=== PATIENT | male | born 1960 | race Caucasian/White ===

== ENCOUNTER 2019-11-12 02:14 | Observation (INO) | payer OTHER, SELFPAY ==
[2019-11-12] VITALS (18 sets, daily range): BP systolic 129–178; BP diastolic 66–130; PULSE 93–112; RESP 12–24; TEMP 36.3–37; O2SAT 91–99; BMI 38.5; BMI 38.4
--- NOTE | 2019-11-12 | IMM_PTH ---
PATIENT: LIZET TILLEY LOC: MS3 U#:[id number] AGE/SX: 59/M ROOM: MS321 RE11/12/[address]: Dr. Isa Peter MD : 1960 BED: 1 DIS: 11/12/2019 SPEC #: [id number] RECD: 11/13/19 09:21 STATUS: SOUT REQ #: [id number] DANIELLA: 11/12/19 00:[address]: Jefferson Caicedo DEPT: IMMUNOHISTOCHEMISTRY RECD BY: Angeles Aguilar ENTERED: 11/13/19 09:30 SP TYPE: IMMUNO OTHR DR: MD Dr. Francisco Aguilar MD Dr. Joseph Prah, MD No Primary Care Phys Tissues: Lung, NOS Procedures: RCC (add) NAPSIN A (add) CK20 (add) CK5-6 (add) CK7 (add) CK8 (add) HEP PAR (add) TTF1 (add) Pankeratin (initial) P40 (add) PSAP (add) PHYSICIAN & [address] [address] SPECIMEN INFORMATION: Tissue Source: Right mainstem Clinical Info: Lung mass Specimen Number: [id number] CPT code: 49610, 61913 x10 METHODOLOGY: Deparaffinized sections of prefer/formalin-fixed tissue or PAP/DQ stained slides are incubated with monoclonal/polyclonal antibodies/oligonucleotide probes. Localization is made via biotin free immunoperoxidase method. Appropriate controls are performed and reacted as expected. Results on target cell population are indicated in the following table: RESULTS: ANTIBODY / CLONE RESULT AE1-3 (AE1/AE3/PCK26) positive CK7 (OV-TL12/30) negative CK8 (47mnqqJ09) positive CK20 (KS20.8) negative TTF-1 (8G7G3/1) negative Napsin A (Rabbit Polyclonal) negative HepPar (OCh1E5) negative RCC (PN-15) negative PSAP (PASE/4LJ) negative CK5-6 (D5 & 1684) positive P40 (BC28) positive These tests were developed and their performance characteristics determined by [facility]. They may not have been cleared or approved by the U.S. Food and Drug Administration. The FDA has determined that such clearance or approval is not necessary. The above immunohistochemical/dualISH markers are ordered and reviewed by the Pathologist. INTERPRETATION: Right mainstem, endobronchial biopsy: Non-small cell carcinoma, favor squamous cell carcinoma. SJ:john 11/14/19
--- NOTE | 2019-11-12 | LUNB_PTH ---
PATIENT: LIZET TILLEY LOC: MS3 U#:[id number] AGE/SX: 59/M ROOM: SD321 RE11/12/[address]: Dr. Isa Peter MD : 1960 BED: 1 DIS: 11/12/2019 SPEC #: [id number] RECD: 11/12/19 11:09 STATUS: IMELDA REQ #: [id number] DANIELLA: 11/12/19 00:[address]: Jefferson Caicedo DEPT: SURGICAL PATHOLOGY RECD BY: Reinier Vázquez ENTERED: 11/12/19 12:46 SP TYPE: LUNG BX OTHR DR: MD Dr. Jefferson Aguilar DO Dr. Joseph Agyepong, MD Dr. Joseph Prah, MD No Primary Care Phys Tissues: Lung, NOS Procedures: Surgery Specimen Level IV Comments: @ Ordering doctor for SUIV edited from to @ by BIA at 11/12/19 1327 @ Submitting doctor edited from to @ by RGOOD at 11/12/19 1327 HEADER OPERATION: Bronchoscopy with endobronchial biopsy, Lauren biopsy, cytobrush PRE-OP DIAGNOSIS: Lung mass TISSUE SUBMITTED: Right mainstem MICROSCOPIC DIAGNOSIS Right mainstem, endobronchial biopsy: Non-small cell carcinoma, favor Squamous cell carcinoma. See comment. CRISTO:john 11/13/19 COMMENT Immunohistochemistry ([id number]) supports the above diagnosis. Molecular studies on the tumor will be performed and the results will be reported as an addendum. Please make reference to corresponding cytology specimen ([id number]). MICROSCOPIC DESCRIPTION Slides are reviewed. GROSS DESCRIPTION Received in fixative is one container labeled with the patient's name and designated endobronchial biopsy right mainstem. The specimen consists of multiple irregular fragments of melendrez soft tissue that in aggregate measure 1 x 0.2 x 0.1 cm. The specimen is totally submitted in one cassette. / CRISTO:john 8/18/20 TC:0 CPT: 39008 ADDENDUM ADDENDUM ADDENDUM ADDENDUM ADDENDUM ADDENDUM ADDENDUM ADDENDUM ADDENDUM ADDENDUM ADDENDUM 11/27/2019 09:53 ADDENDUM 12/04/2019 09:56 ADDENDUM 11/27/2019 09:53 ADDENDUM 11/27/2019 09:53 ADDENDUM 11/27/2019 09:53 ADDENDUM 11/27/2019 09:53 [facility] EGFR SEQUENCING REPORT FROM [facility] RESULT SUMMARY: Normal PERTINENT NEGATIVE RESULTS: The following genes are negative for clinically relevant mutations. Mutational hotspots and surrounding exonic regions were interrogated for DNA level point mutations and indels (fusions not assayed). EGFR (exons 7, 15, 18, 19, 20, 21) inclusive of T790M. Please see complete report in e-chart or EMR FLUORESCENCE IN SITU HYBRIDIZATION FROM [facility] INTERPRETATION: No evidence of ALK gene rearrangement or deletion. RESULTS: 2p23/ ALK Normal Nuclei Rearrangement 100% Please see complete report in e-chart or EMR
--- NOTE | 2019-11-12 02:25 | EKG12_ITS ---
Test Reason : SOB Blood Pressure : / mmHG Vent. Rate : 093 BPM Atrial Rate : 093 BPM P-R Int : 134 ms QRS Dur : 098 ms QT Int : 370 ms P-R-T Axes : -08 054 026 degrees QTc Int : 460 ms Normal sinus rhythm Normal ECG Confirmed by NATALIA CASTILLO, JAJA ([id number]), assignment editor CHENTE HOLLIS ([id number]) on 11/12/2019 9:31:08 AM Referred By: Francisco Girard Confirmed By:JAJA FISHER MD
--- NOTE | 2019-11-12 02:25 | RAD_ITS ---
STUDY: X-RAY CHEST REASON FOR EXAM: Male, 59 years old. SOB x1 month. Including tonight. TECHNIQUE: PA and lateral views of the chest. COMPARISON: 10/03/2013 CT chest FINDINGS: There is a interval density in the right infrahilar region. There is an enlarged masslike enlargement of the right hilum. Normal size heart. Normal mediastinum and juvencio. Normal visualized pulmonary arteries. Normal visualized aortic arch and descending thoracic aorta. There are diffuse degenerative changes of the visualized thoracic spine. Normal visualized ribs, clavicles, and shoulders. There is no demonstrated abnormality of the visualized soft tissue structures of the upper abdomen. RAD/Chest PA and Lateral IMPRESSION: Enlarged masslike enlargement of the right hilum suspicious for lymphadenopathy/mass. Recommend CT scan of the chest. Electronically Signed: Luly Chandler MD at 3:34 EDT Tel , Service support ,
--- NOTE | 2019-11-12 02:26 | ED.VIS.GEN ---
History of Present Illness Chief Complaint: Shortness of Breath Informant: Patient Narrative: shortness of breath he stated on and off for the last 9 months worse over the last month. He has wheezing. He has dyspnea with exertion. He does smoke cigarettes. No history of COPD. Takes no medications. Has not seen a doctor for some years however. Denies any history of cardiac disease or chronic lung disease. He has noticed he has been wheezing. No home treatment. Comes in for further evaluation and treatment. Denies any coronavirus risk factors or other symptoms to suggest coronavirus. Current severity is mild - Past Medical History (1) AVELINO (acute kidney injury) Status: Acute (2) Altered mental state Status: Acute (3) Chronic lower Back Pain due to Status: Acute (4) Closed head injury Status: Acute (5) Dehydration Status: Acute (6) Fall Status: Acute (7) Hypokalemia Status: Acute (8) sedation due to narcotic Status: Acute (9) Chronic pain Status: Chronic (10) Lymphedema Status: Chronic (11) Morbid obesity with BMI of 50.0-59.9, adult Status: Chronic (12) Schizophrenia Status: Suspected Comment: review of his old chart documents schizophrenia BUT review of the notes from the psychiatrist at mental health clinic does not support this. HX is + for severe depression and anxiety Past Medical History - Allergies and Home Meds Allergies/Adverse Reactions: Allergies No Known Allergies Allergy (Verified 11/12/19 02:22) Primary Care Physician: Terrence Guajardo MD [NON-STAFF] - Prior records reviewed: Yes Past Medical History: - - See problem list Surgical History: no surgical history, - - spinal pain pump seven years ago, then replacement of july of this year Smoking Status: Current some day smoker Alcohol: None Drugs: None - Family History Paternal Family History: Reports: - - Father of suicide Maternal Family History: Reports: - - heart issues, mother with mi recently Review of Systems General: Denies: Chills, Fever, Sweats Eyes: Denies: Visual changes - bilaterally, Diplopia ENT: Denies: Rhinorrhea, Sore throat Cardiovascular: Denies: Chest pain, Palpitations Respiratory: Reports: Dyspnea, Dyspnea on exertion. Denies: Cough Gastrointestinal: Denies: Abdominal pain, Nausea, Vomiting, Diarrhea, Melena, Hematochezia Genitourinary: Denies: Dysuria, Hematuria, Frequency Musculoskeletal: Denies: Back pain, Extremity Pain Skin: Denies: Rash, Wounds Neurological: Denies: Headache, Weakness, Numbness Physical Exam Vital Signs/Narrative: Vital Signs Temp Pulse Resp BP Pulse Ox 11/12/19 02:22 97.4 F L 98 18 178/107 H 98 11/12/19 02:15 97.4 F L 98 16 178/107 H 98 General: Well nourished, Well developed, No Acute Distress Head: Normocephalic, Atraumatic Eyes: Perrl, EOMI ENT: Moist mucous membranes, No rhinorrhea Neck: Supple, Nontender Cardiovascular: Regular rate, Regular rhythm, No murmurs Respiratory: No distress, Chest nontender, Wheezing - Diffuse wheezing throughout all lung andrade expiratory Abdomen: Soft, Nontender, Nondistended, Normal bowel sounds Back: Nontender, Normal Inspection Extremities: Nontender, No edema Skin: Normal color, No rash Neurological: Alert, Oriented x3, Cranial nerves II-XII grossly intact, Normal Strength, Normal Sensation Psychological: Normal affect, Normal Mood Diagnostic/Tx/Re-eval - Medical Decision Making Lab work EKG chest x-ray obtained. Patient given DuoNeb breathing treatment followed by albuterol nebulizer treatments. Patient felt much better after breathing treatments. The wheezing has resolved. EKG of the patient's heart shows normal sinus rhythm at a rate of 93 with no acute ischemia or arrhythmia. Chest x-ray shows no infiltrates. Right-sided hilar mass noted. CT of the chest with IV contrast shows a significant right-sided hilar mass with lymph node enlargement and post bronchial obstructive atelectasis of the right upper and partial middle lobe. I suspect the patient may have cancer. He is willing to be admitted to the hospital. Lab work shows no acute abnormalities otherwise. CBC BMP and troponin are negative. Discussed with the hospitalist will be admitted ED Disposition - Plan for ED Patient: Disposition: Acute Care Hospital [facility] Diagnosis: Lung mass
[2019-11-12 02:31] LABS: Absolute Lymphocyte Count 1.82 X10^3/uL (0.83-4.51); Absolute Neutrophil Count 4.9 X10^3/uL (2.0-7.7); Basophil# 0.03 X10^3/uL; Basophil% 0.4 % (0-1); Eosinophil# 0.12 X10^3/uL; Eosinophils% 1.6 % (0-5); Hematocrit 46.9 % (40-54); Hemoglobin 15.6 g/dL (13.0-16.5); Lymphocyte # 1.82 X10^3/ul (4.0); Lymphocyte % 24.1 % (19-41); Mean Corp Hgb Conc 33.3 g/dL (32-36); Mean Corpuscular Hgb 30.7 pg (27.0-32.0); Mean Corpuscular Volume 92.3 fL (80-94); Mean Platelet Vol. 9.5 fl (6.2-12.0); Monocyte# 0.67 X10^3/uL; Monocyte% 8.9 % (0-10); NRBC Flagged by Analyzer 0 % (0-5); Neutrophil # 4.89 X10^3/uL (2.7-7.7); Neutrophil % 64.7 % (47-70); Platelet Count 326 K/mm3 (150-450); RBC Distribution Width CV 12.6 % (11.6-14.6); RBC Distribution Width SD 42.7 fl (35.1-43.9); Red Blood Count 5.08 M/mm3 (4.6-6.2); White Blood Count 7.6 K/mm3 (4.4-11.0)
[2019-11-12] MEDS: Ipratropium/Albuterol Sulfate 3 ML AMPUL.NEB INHALATION ×2 (02:31→07:01)
[2019-11-12] MEDS: Albuterol 2.5 MG/3 ML VIAL.NEB. INHALATION ×3 (02:34→02:35)
[2019-11-12 02:50] LABS: Anion Gap 3 (5-15); BUN 17 mg/dL (7-18); BUN/Creat Ratio 13.2 RATIO (10-20); Calcium,Total 9.1 mg/dL (8.5-10.1); Chloride 108 mmol/L (98-107); Creatinine, Serum 1.29 mg/dL (0.70-1.30); EST Glomerular Filtration Rate 61 mL/min (>60); Est Glom Filt Rate - Afr Amer 74 mL/min (>60); Estimated Creatinine Clearance 66.48 ml/min; Glucose 134 mg/dL (74-106); Potassium 3.9 mmol/L (3.5-5.1); Sodium Level 141 mmol/L (136-145)
--- NOTE | 2019-11-12 03:45 | CT_ITS ---
STUDY: CT CHEST WITH CONTRAST REASON FOR EXAM: Male, 59 years old. CONCERN FOR LUNG MASS ON X-RAY, SOB ON/OFF FOR 9 MONTHS, COUGH, WHEEZING, HX COPD, SMOKER, PAIN PUMP RADIATION DOSAGE (If Supplied By Facility): CTDIvol = ( 17.92 ) mGy, DLP = ( 714.39 ) mGycm TECHNIQUE: Transaxial imaging was performed following intravenous administration of IV 100mL Isovue-370. Multiplanar coronal and sagittal images were reformatted. Individualized dose optimization techniques were used for this CT. COMPARISON: CT of the chest 04/07/2013 FINDINGS: There is focal dense consolidation from the right apex anteriorly to the right hilum. There is a visualized abnormal thick walled appearance of the right mainstem bronchus which appears to be partially effaced and substantially narrow proximally. It appears to be encased and narrowed best seen image #155 of the coronal views. There is right lung base small focus of nonspecific pleural thickening Normal heart and pericardium. The pathology in the right hilum encases the right pulmonary artery without thrombus. There is a collapsed appearance of the right upper lobe and a portion of the right knee middle lobe. There is a masslike density within the right hilum infiltrating the right side of the mediastinum encasing the right mainstem bronchus and partially the right pulmonary artery. There is a large lymph node adjacent to the right side of the trachea measuring 2.6 x 2.7 cm where a suspected mass leaves off in the consolidation of the right lung (difficult to ascertain. Normal enhanced pulmonary arteries. There is atherosclerotic calcification of the aortic arch with tortuosity and elongation of the aortic arch and descending thoracic aorta. There are multi-level degenerative changes of the thoracic spine. A well-circumscribed low attenuating cystic structure within the left hepatic lobe measuring 3.1 x 2.3 cm. This is enlarged when compared to prior study 05/24/2013, when it measured 1.[address]/Chest WITH Contrast IMPRESSION: There is a mass which is infiltrate in the right hilum narrowed and encased the right mainstem bronchus with adjacent reactive metastatic lymph nodes. Findings are most consistent with a postobstructive collapse/pneumonitis of the right upper lobe and right middle lobe. Neoplasm should be considered to prevent otherwise. History of bronchoscopy would be helpful. PET scan is suggested when appropriate. There is a left hepatic cyst with benign features which is enlarged slightly since prior study. This may be associated benign enlargement over time. Electronically Signed: Luly Chandler MD at 4:34 EDT Tel , Service support ,
--- NOTE | 2019-11-12 04:43 | PCM.HP.STD ---
Problem List (1) Lung mass Status: Acute (2) Chronic pain Status: Chronic (3) Lymphedema Status: Chronic (4) Chronic lower Back Pain due to Status: Chronic (5) Tobacco abuse Status: Acute History of Present Illness Date of Admission: 11/12/19 Chief Complaint: Shortness of breath The patient is a 59 year old M with a significant history of chronic back pain who presents to the emergency department with shortness of breath dating back to January 2019 where reportedly he had double pneumonia. He shortness of breath has progressively worsened in the last month. 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 His shortness of breath worsens excessively with mild activity. Associated with his symptoms is wheezing; productive cough typically of clear sputum but at times of yellow sputum. Also at times he has hemoptysis. Further he has orthopnea and paroxysmal nocturnal dyspnea. He reports fatigue. Past Medical History Past Medical History (Chronic Problems): Chronic Problems Chronic pain (Chronic) Lymphedema (Chronic) Chronic lower Back Pain due to (Chronic) Allergies No Known Allergies Allergy (Verified 11/12/19 02:22) Home Medications: Ambulatory Orders Medication Instructions Recorded NK 11/12/19 Surgical History: - - spinal pain pump placed and extracted; and then replacement of a pain pump in abdomen Psychiatric History: Schizophrenia Smoking Status: Current every day smoker Tobacco Use: Cigarettes Alcohol: None Drugs: None - *Family History Paternal History Items: - - Father of suicide Maternal History Items: - - heart issues, mother with mi recently Review of Systems Constitutional: Denies: Chills, Fever, Weight Change HEENT: Denies: Head Aches, Sinus Congestion, Sinus Drainage Cardiovascular: Reports: Orthopnea, Paroxysmal Noc. Dyspnea. Denies: Chest Pain, Palpitations Respiratory: Reports: Hemoptysis, Shortness of Breath, Shortness of breath at rest. Denies: Cough, Sputum production Gastrointestinal: Denies: Abdominal Pain, Nausea, Vomiting Genitourinary: Denies: Dysuria Musculoskeletal: Denies: Joint Pain, Joint Tenderness Skin: Denies: Rash, Wounds Neurological: Denies: Numbness, Tingling, Focal weakness Psychiatric: Denies: Anxiety, Depression, Homicidal Ideations, Suicidal Ideations Hematologic/ Lymphatic: Denies: Easy Bruising, Easy Bleeding VTE Information - Inpt Only VTE Present on Admission: No VTE Mechan Device Prophylaxis: SCD's VTE Pharm Prophylaxis ordered?: No Patient Problems: Active and Suspected Problems Lung mass (Acute) Tobacco abuse (Acute) - Physical Exam Vitals/I&O's: Vital Signs Temp Pulse Resp BP Pulse Ox 97.4 F L 112 H 18 148/72 H 92 11/12/19 02:22 11/12/19 04:26 11/12/19 04:26 11/12/19 04:26 11/12/19 04:26 Oxygen Delivery Method Room Air Weight: 125.4 kg Body Mass Index (BMI) 38.5 Finger Stick Blood Glucose 127 General: Alert, Oriented x3, Cooperative HEENT: Atraumatic, PERRLA, EOMI, Normocephalic Neck: Supple, No JVD, Negative Carotid Bruits Lungs: Rhonchi, Wheezes Cardiovascular: Normal S1, Normal S2, No murmurs, Tachycardic Abdomen: Bowel Sounds Present, Soft, Non Tender Extremities: No edema, Capillary Refill Less than 3 Seconds Skin: No rashes, No breakdown Musculoskeletal: No Tenderness to Palpation of Joints or Extremities Neurological: Cranial nerves II-XII grossly intact Psych/Mental Status: Normal Affect, Appropriate Laboratory Results 11/12/19 02:20: WBC 7.6, RBC 5.08, Hgb 15.6, Hct 46.9, MCV 92.3, MCH 30.7, MCHC 33.3, RDW Std Deviation 42.7, RDW Coeff of Shell 12.6, Plt Count 326, MPV 9.5, Immature Gran % (Auto) 0.300, Neut % (Auto) 64.7, Lymph % (Auto) 24.1, [place] % (Auto) 8.9, Eos % (Auto) 1.6, Baso % (Auto) 0.4, Absolute Neuts (auto) 4.9, Absolute Lymphs (auto) 1.82, Nucleated RBC % 0 11/12/19 02:20: Sodium 141, Potassium 3.9, Chloride 108 H, Carbon Dioxide 30.0, Anion Gap 3 L, BUN 17, Creatinine 1.29, Estim Creat Clear Calc 66.48, Est GFR (MDRD) Af Amer 74, Est GFR (MDRD) Non-Af 61, BUN/Creatinine Ratio 13.2, Glucose 134 H, Calcium 9.1, Troponin I < 0.015 Assessment/Plan All Active Problems Lung mass (Acute) Tobacco abuse (Acute) The patient is a 59 year old M with a significant history of chronic back pain who presents emergency department with shortness of breath; wheezing; hemoptysis; productive cough; paroxysmal nocturnal dyspnea; orthopnea and radiographic evidence of lung mass. Lung mass Patient received DuoNeb and albuterol emergency department. Because of wheezing scheduled DuoNeb and PRN albuterol ordered. Consult pulmonary medicine and oncology. Chronic back pain He has a pain pump but for a while he has run out of pain medicine and and the pump is always beeping. On discharge consider pain management referral for discussion of possible pain pump extraction. Tobacco abuse Patient smoke cigarettes Smokes about 8 to 10 sticks of cigarettes per day Counseled Declined nicotine patch. DVT prophylaxis SCD for now. Will defer chemical chemoprophylaxis because of a possible bronchoscopy/biopsy of lung mass. Inpatient E&M: 48009 Init Hosp L3
[2019-11-12 06:22] LABS: Prothrombin Time (Protime)PT. 12.2 SECONDS (11.7-14.9)
--- NOTE | 2019-11-12 07:23 | CON.PCM_ITS ---
Reason for Consult Date of Consultation: 11/12/19 Reason for Consultation: Shortness of breath, hemoptysis, lung mass History of Present Illness: The patient is a 59-year-old male, with a history as outlined below, who presented to the emergency department on November 11 with complaints of shortness of breath and intermittent episodes of hemoptysis. The patient does have an approximate [id number]-grys smoking history and continues to smoke cigarettes daily. He has never been evaluated by a insurance billing clerk previously. He stated that his symptoms have been present since January 2019, at which time, he was apparently treated for bilateral pneumonia. He denies any unintentional weight loss or loss of appetite. He denies any known cardiac disease. The patient does report having had a colonoscopy performed within the last several years, at which time a polyp was identified. However, it was reportedly benign in etiology. On presentation to the emergency department, the patient was noted to be afebrile hemodynamically stable. He was maintaining appropriate oxygen saturations on room air. Laboratory evaluation revealed a normal CBC with differential. Coagulation profile was within normal limits. Chemistry profile was largely unrevealing. Troponin was negative. A contrasted chest CT was subsequently obtained which revealed consolidation of the right upper lobe with a right hilar mass which appears to be obstructing the right upper lobe takeoff and significantly narrowing the right mainstem and bronchus intermedius. The upper lobe changes are most likely reflective of postobstructive collapse. The patient was subsequently placed on scheduled aerosol treatments and admitted to the medical surgical floor for further management. This morning, the patient does report overall improvement in his breathing quality since being started on the nebulized bronchodilators. He stated that he is currently in the process of moving and has been significantly limited from an exertional standpoint due to profound shortness of breath. I did personally explain the findings noted on his CT chest and the concern that this could represent an underlying malignancy. I did recommend proceeding with bronchoscopic airway evaluation with potential biopsies. Following a discussion regarding the risks and benefits of the proposed procedure, the patient is in agreement to proceed. Past Medical History Past Medical History (Chronic Problems): Chronic Problems Chronic pain (Chronic) Lymphedema (Chronic) Chronic lower Back Pain due to (Chronic) Allergies No Known Allergies Allergy (Verified 11/12/19 02:22) Home Medications: Ambulatory Orders Medication Instructions Recorded Albuterol Inhaler [Ventolin Hfa] 2 puff INHALATION Q4H PRN PRN 30 11/12/19 Days #1 inhaler Surgical History: - - spinal pain pump placed and extracted; and then replacement of a pain pump in abdomen Psychiatric History: Schizophrenia Smoking Status: Current every day smoker Tobacco Use: Cigarettes Alcohol: None Drugs: None - *Family History Paternal History Items: - - Father of suicide Maternal History Items: - - heart issues, mother with mi recently Review of Systems Constitutional: Denies: Chills, Fever, Weight Change Eyes: Denies: Blurred vision, Double vision HEENT: Denies: Head Aches, Sinus Congestion, Sinus Drainage Cardiovascular: Denies: Chest Pain, Palpitations Respiratory: Reports: Cough, Hemoptysis, Shortness of Breath, Sputum production Gastrointestinal: Denies: Abdominal Pain, Nausea, Vomiting Genitourinary: Denies: Dysuria Musculoskeletal: Denies: Joint Pain, Joint Tenderness Skin: Denies: Rash, Wounds Neurological: Denies: Numbness, Tingling, Focal weakness Psychiatric: Denies: Anxiety, Depression, Homicidal Ideations, Suicidal Ideations Hematologic/ Lymphatic: Denies: Easy Bruising, Easy Bleeding - Physical Exam Vitals/I&O's: Vital Signs Temp Pulse Resp BP Pulse Ox 97.9 F 97 20 H 131/66 H 94 11/12/19 06:04 11/12/19 06:04 11/12/19 06:04 11/12/19 06:04 11/12/19 06:04 Oxygen Delivery Method Room Air Weight: 275 lb 5.718 oz Body Mass Index (BMI) 38.4 Finger Stick Blood Glucose 127 Intake and Output for Last 24 Hours 11/10/19 11/11/19 11/12/19 23:59 23:59 23:59 Intake Total 500 / 500 Balance 500 / 500 General: Alert, Cooperative, No apparent distress HEENT: Atraumatic, PERRLA, Normocephalic Oral: No Gingival or Mucosal Lesions/ Ulcerations Neck: Supple, No Nodes, Trachea Midline Lungs: No rhonchi, No rales, Diminished, Wheezes Cardiovascular: Normal S1, Normal S2, Tachycardic Abdomen: Bowel Sounds Present, Soft, Non Tender Extremities: No clubbing, No cyanosis, No edema Skin: No breakdown Musculoskeletal: No Tenderness to Palpation of Joints or Extremities Lymphatic: No Cervical, Supraclavicular, or Inguinal Adenopathy Neurological: Cranial nerves II-XII grossly intact, Neuro grossly intact Psych/Mental Status: Normal Affect, Appropriate Labs (Last 48 Hours) 11/12/19 11/12/19 11/12/19 02:20 02:20 02:20 WBC 7.6 RBC 5.08 Hgb 15.6 Hct 46.9 MCV 92.3 MCH 30.7 MCHC 33.3 RDW Std Deviation 42.7 RDW Coeff of Shell 12.6 Plt Count 326 MPV 9.5 Immature Gran % (Auto) 0.300 Neut % (Auto) 64.7 Lymph % (Auto) 24.1 [place] % (Auto) 8.9 Eos % (Auto) 1.6 Baso % (Auto) 0.4 Absolute Neuts (auto) 4.9 Absolute Lymphs (auto) 1.82 Nucleated RBC % 0 PT 12.2 INR 1.0 Sodium 141 Potassium 3.9 Chloride 108 H Carbon Dioxide 30.0 Anion Gap 3 L BUN 17 Creatinine 1.29 Estim Creat Clear Calc 66.48 Est GFR (MDRD) Af Amer 74 Est GFR (MDRD) Non-Af 61 BUN/Creatinine Ratio 13.2 Glucose 134 H Calcium 9.1 Troponin I < 0.015 Clinical Impression(s) from Imaging Studies Chest X-Ray 11/12/19 02:25 IMPRESSION: Enlarged masslike enlargement of the right hilum suspicious for lymphadenopathy/mass. Recommend CT scan of the chest. Electronically Signed: Luly Chandler MD at 3:34 EDT Tel , Service support , Chest CT 11/12/19 03:45 IMPRESSION: There is a mass which is infiltrate in the right hilum narrowed and encased the right mainstem bronchus with adjacent reactive metastatic lymph nodes. Findings are most consistent with a postobstructive collapse/pneumonitis of the right upper lobe and right middle lobe. Neoplasm should be considered to prevent otherwise. History of bronchoscopy would be helpful. PET scan is suggested when appropriate. There is a left hepatic cyst with benign features which is enlarged slightly since prior study. This may be associated benign enlargement over time. Electronically Signed: Luly Chandler MD at 4:34 EDT Tel , Service support , Current Medications Acetaminophen (Tylenol) 650 mg PO Q6H PRN PRN PRN Reason: Pain Score 1-10/Temp > 100.7 F Albuterol Sulfate (Ventolin Aerosols) 2.5 mg INHALATION Q2H PRN PRN PRN Reason: Shortness of Breath/Wheezing Albuterol/Ipratropium (Duoneb) 3 ml INHALATION Q6HWA.RT AKSHAT Last Admin: 11/12/19 07:01 Dose: 3 ml Documented by: Melatonin (Melatonin) 3 mg PO QHS PRN PRN PRN Reason: INSOMNIA Ondansetron HCl (Zofran) 4 mg IV Q8H PRN PRN PRN Reason: NAUSEA/VOMITING Sodium Chloride () 10 - 40 ml IV UD PRN PRN Reason: SALINE FLUSH Assessment/Plan All Active Problems Lung mass (Acute) Tobacco abuse (Acute) Lung cancer (Acute) RECOMMENDATIONS: 1. Proceed with bronchoscopic airway evaluation with possible biopsies. The procedure has been tentatively scheduled for 10 AM. 2. Continue scheduled bronchodilator therapy. 3. Perform walking oximetry study prior to consideration for discharge home. 4. Encourage incentive spirometer use and mobilize patient as tolerated. 5. Outpatient follow-up in the pulmonary medicine clinic within 2 weeks of discharge is recommended. IMPRESSIONS: 1. Shortness of breath/right hilar lung mass The patient CT chest was personally reviewed and did reveal evidence of a right hilar lung mass with associated obstruction of the right upper lobe and compression of the right mainstem and bronchus intermedius. There did appear to be an element of postobstructive pneumonia/atelectasis present as well. The patient does have an extensive smoking history. These findings, of course, wo uld be concerning for underlying malignancy. I did recommend proceeding with bronchoscopic airway evaluation and possible biopsies to confirm my diagnosis. Following a discussion regarding the risks and benefits of the proposed procedure, the patient is in agreement to proceed. In the interim, I would recommend that he be continued on scheduled bronchodilator therapy. 2. History of tobacco dependency The patient has a 40+-pack-year smoking history and continues to smoke cigarettes daily. He may certainly have an underlying component of obstructive lung disease contributing to his perceived dyspnea. I would recommend that he follow-up closely on an outpatient basis in the pulmonary medicine clinic so that baseline pulmonary function studies can be completed. In addition, would plan to complete a walking oximetry study prior to consideration for discharge home, to evaluate for the need for supplemental oxygen. I did personally spent 4 minutes discussing the deleterious effects of continued tobacco use with the patient, including modalities which could be utilized to achieve a smoke-free lifestyle. UPDATE POST BRONCHOSCOPY: Bronchoscopy revealed evidence of a right hilar lung mass with extrinsic compression and infiltration into the right mainstem. There was evidence of a fungating endobronchial lesion in the right mainstem which could not be traversed with the bronchoscope. In addition, there was complete obstruction of the right upper lobe orifice. Endobronchial biopsies, endobronchial needle aspiration and cytology brush samples were obtained. If the patient does well post procedure, he could feasibly to be discharged home with plans to follow-up in the pulmonary medicine clinic within 2 weeks. I would strongly recommend that he be discharged home on as needed albuterol, either in nebulized or metered-dose forms. I did advise the patient that I will contact him as soon as his pathology results are made available. This note was generated with [employer] dictation software. It may contain incorrect words, spelling, and punctuation that were not noted in checking the note before signing. Inpatient E&M: 40541 Init Hosp L3 - Behavior Interventions Behavior Intervention: 23295 Smoking Cessation 3-10 min
[2019-11-12] MEDS: Lactated Ringers 1,000 ML 100 ML IV (09:32)
[2019-11-12] MEDS: Lidocaine 2% Jelly 1 APPLIC Tube (10:50)
--- NOTE | 2019-11-12 10:56 | OP.BRONCH_ITS ---
Patient Name: Randal Sal Procedure Date: 11/12/2019 9:51 AM Date of : 1960 Age: 59 Procedure: Bronchoscopy Indications: Right mainstem mass, Right hilar mass Providers: Jefferson Caicedo MD Referring MD: Francisco Girard Medicines: Monitored Anesthesia Care Complications: Patient bronchospasm and coughing limited the number of biopsies that could be obtained. The endobronchial lesion also bled a great deal following biopsy. Stasis was achieved with infusion of cold saline. No immediate complications Procedure: Pre-Anesthesia Assessment: - A History and Physical has been performed. Patient meds and allergies have been reviewed. The risks and benefits of the procedure and the sedation options and risks were discussed with the patient. All questions were answered and informed consent was obtained. Patient identification and proposed procedure were verified prior to the procedure by the physician and the nurse in the procedure room. Mental Status Examination: alert and oriented. Airway Examination: normal oropharyngeal airway. Respiratory Examination: expiratory wheezes. CV Examination: RRR, no murmurs, no S3 or S4. ASA Grade Assessment: II - A patient with mild systemic disease. After reviewing the risks and benefits, the patient was deemed in satisfactory condition to undergo the procedure. The anesthesia plan was to use monitored anesthesia care (MAC). Immediately prior to administration of medications, the patient was re-assessed for adequacy to receive sedatives. The heart rate, respiratory rate, oxygen saturations, blood pressure, adequacy of pulmonary ventilation, and response to care were monitored throughout the procedure. The physical status of the patient was re-assessed after the procedure. After I obtained informed consent, the scope was passed under direct vision. Throughout the procedure, the patient's blood pressure, pulse, and oxygen saturations were monitored continuously. The bronchoscope was introduced through the mouth and advanced to the tracheobronchial tree. The procedure was accomplished without difficulty. The patient tolerated the procedure fairly well. Findings: The nasopharynx/oropharynx appears normal. The larynx appears normal. The vocal cords appear normal. The subglottic space is normal. The trachea is of normal caliber. The farrah is sharp. The tracheobronchial tree of the left lung was examined to at least the first subsegmental level. Bronchial mucosa and anatomy in the left lung are normal Right Lung Abnormalities: A partially obstructing (about 80% obstructed) mass was found in the right mainstem bronchus with complete obstruction of the right upper lobe orifice. The mass was endobronchial and fungating. The lesion was not traversed. Extrinsic compression was found in the right mainstem bronchus. Endobronchial biopsies were performed in the right mainstem bronchus using forceps and sent for routine cytology. Three samples were obtained. Endobronchial needle aspiration of a lesion was performed in the right mainstem bronchus using a Lauren 19 gauge needle and sent for routine cytology. One sample was obtained. Guided brushings were obtained in the right mainstem bronchus with a cytology brush and sent for routine cytology. One sample was obtained. Washings were obtained in the right mainstem bronchus and sent for cell count, bacterial culture, viral smears & culture, and fungal & AFB analysis and cytology. The return was bloody. Impression: - Right mainstem mass - Right hilar mass - The airway examination of the left lung was normal. - An endobronchial and fungating mass was found in the right mainstem bronchus and in the right upper lobe. - Extrinsic compression was found in the right mainstem bronchus. - An endobronchial biopsy was performed. - Endobronchial needle aspiration was performed. - Brushings were obtained. - Washings were obtained. Recommendation: - Await cytology and washing results. Procedure Code(s): --- Professional --- 53720, Bronchoscopy, rigid or flexible, including fluoroscopic guidance, when performed; with bronchial or endobronchial biopsy(s), single or multiple sites 03602, Bronchoscopy, rigid or flexible, including fluoroscopic guidance, when performed; with brushing or protected brushings Diagnosis Code(s): --- Professional --- R91.8, Other nonspecific abnormal finding of lung field J98.9, Respiratory disorder, unspecified J98.09, Other diseases of bronchus, not elsewhere classified J98.4, Other disorders of lung CPT copyright 2017 [employer]. All rights reserved. The codes documented in this report are preliminary and upon domestic cleaner review may be revised to meet current compliance requirements. DO Jefferson Roque MD 11/12/2019 10:55:31 AM This report has been signed electronically. Number of Addenda: 0 Note Initiated On: 11/12/2019 9:51 AM
--- NOTE | 2019-11-12 11:09 | FLU_PTH ---
PATIENT: LIZET TILLEY LOC: [facility] U#:[id number] AGE/SX: 59/M ROOM: IN321 RE11/12/[address]: Dr. Isa Peter MD : 1960 BED: 1 DIS: 11/12/2019 SPEC #: [id number] RECD: 11/12/19 12:40 STATUS: SOUT REQ #: [id number] DANIELLA: 11/12/19 11:[address]: Jefferson Caicedo DEPT: CYTOLOGY RECD BY: Reinier Vázquez ENTERED: 11/12/19 12:44 SP TYPE: Fluid OTHR DR: MD Dr. Jefferson Aguilar DO Dr. Joseph Agyepong, MD Dr. Joseph Prah, MD No Primary Care Phys Tissues: A - Lung, NOS B - Lung, NOS C - Lung, NOS D - Lung, NOS E - Lung, NOS Procedures: Special Stain Group II Special Stain Group I Surgery Specimen Level IV AFB Stain (control) Cytospin Fluid Cytology Other Comments: @ Ordering doctor for SSII edited from to @ by BIA at 11/12/19 1327 @ Ordering doctor for SUIV edited from to @ by BIA at 11/12/19 1327 @ Ordering doctor for CYSPIN edited from to [email or web address] Haney by BIA at 11/12/19 1327 @ Ordering doctor for CYOTHER edited from to @ by BIA at 11/12/19 1327 @ Submitting doctor edited from to [email or web address] Haney by RGOOD at 11/12/19 1327 HEADER OPERATION: Bronchoscopy with endobronchial biopsy, Lauren biopsy, cytobrush PRE-OP DIAGNOSIS: Lung mass TISSUE SUBMITTED: A - Lauren biopsy right mainstem, B - Wash right mainstem, C - Wash right mainstem, D - [place] right mainstem, E - Right mainstem slides x3 DIAGNOSIS CYTOLOGY A. Lauren biopsy right mainstem (cytospin and cell block): Negative for malignant cells. Special stain for acid fast bacilli is negative for organisms; matched control is appropriate. See cytology study and comment. B. Right mainstem, washing (cytospin and cell block): Scant mildly atypical epithelial cells noted. Special stain for acid fast bacilli is negative for organisms; matched control is appropriate. C. Right mainstem, washing (cytospin and cell block): A few atypical epithelial cells noted. Special stain for acid fast bacilli is negative for organisms; matched control is appropriate. D. Right mainstem, brushing (cytospin and cell block): Malignant cells present derived from non-small cell carcinoma. Special stain for acid fast bacilli is negative for organisms; matched control is appropriate. E. Right mainstem, brushing (smears): A few malignant cells present derived from non-small cell carcinoma. CRISTO:john 11/13/19 COMMENT Please make reference to corresponding surgical specimen ([id number]) right mainstem, endobronchial biopsy with diagnosis of non-small cell carcinoma, favor squamous cell carcinoma. CYTOLOGY STUDY Slides are reviewed. A. The specimen is paucicellular and consists of rare respiratory epithelial cells. CYTOLOGY GROSS A - Received is 15 ml of red cloudy fluid labeled with the patient's name and and designated per the requisition as Lauren biopsy right mainstem. Submitted for cytology preparation including cell block. B - Received is 40 ml of red cloudy fluid labeled with the patient's name and and designated per the requisition as wash right mainstem. Submitted for cytology preparation including cell block. C - Received is 30 ml of red cloudy fluid labeled with the patient's name and and designated per the requisition as wash right mainstem. Submitted for cytology preparation including cell block. D - Received is a metallic endoscopic cytobrush with adherent minute fragments of melendrez-red tissue brush in 2 ml of clear red fluid and labeled with the patient's name and and designated per the requisition as brush right mainstem. The material is dislodged from the brush and submitted for cytology preparation including cell block. E - Received are three smears labeled with the patient's name and designated per the requisition as right mainstem. Submitted for staining. / john 11/12/19 TC:0 CPT: 28811 x4, 12113 x4, 49432, 16547 x4
[2019-11-12 11:18] LABS: Cytology, Body Fluid / CSF SEE PATHOLOGY REPORT
--- NOTE | 2019-11-12 11:45 | PCM.DC ---
- Discharge Diagnoses Current Active Problems: Current Active and Chronic Problems Lung mass (Acute) Tobacco abuse (Acute) Reason(s) for Visit for Discharge Instructions: Lung mass You will use the following diet at home:: Regular Your food should be the consistency of: Regular Your liquids should be the consistency of: Regular/Thin Discharge Activity: Return to Normal Activity Additional Instructions: Continue to use your albuterol inhaler. Follow-up with your primary care doctor and Dr. Caicedo within 1-2 weeks. Allergies/Adverse Reactions: Allergies No Known Allergies Allergy (Verified 11/12/19 02:22) Medications to take at Discharge Albuterol Inhaler [Ventolin Hfa] 2 puff INHALATION Q4H PRN PRN 30 Days #1 inhaler 11/12/19 The following prescriptions were given: Albuterol Inhaler [Ventolin Hfa] 2 puff INHALATION Q4H PRN PRN 30 Days #1 inhaler PRN Reason: Sob &/Or Wheezing Transmission Status: Pending to [facility] Primary Care Physician: Care Physician,No Primary [Primary Care Provider] - Please follow up with your Primary Care Physician in: within 1-2 weeks Test Results: Test results from this visit will be discussed in further detail at your follow-up appointment, if applicable. Proposed Discharge Date: 11/12/19
--- NOTE | 2019-11-12 11:47 | DS.PCM_ITS ---
Discharge Date and Diagnosis Date of Admission: 11/12/19 Date of Discharge: 11/12/19 - Primary Discharge Diagnosis Acute Problems: Active Problems Lung mass (Acute) Nicotine dependence - Secondary Discharge Diagnosis Chronic Problems: Chronic Problems Chronic pain (Chronic) Lymphedema (Chronic) Chronic lower Back Pain due to (Chronic) Hospital Course and Treatment Imaging Results: 11/12/19 03:45 CT Chest [Chest WITH Contrast] [CT] Stat Clinical Impression(s) from Imaging Studies Chest X-Ray 11/12/19 02:25 IMPRESSION: Enlarged masslike enlargement of the right hilum suspicious for lymphadenopathy/mass. Recommend CT scan of the chest. Electronically Signed: Luly Chandler MD at 3:34 EDT Tel , Service support , Chest CT 11/12/19 03:45 IMPRESSION: There is a mass which is infiltrate in the right hilum narrowed and encased the right mainstem bronchus with adjacent reactive metastatic lymph nodes. Findings are most consistent with a postobstructive collapse/pneumonitis of the right upper lobe and right middle lobe. Neoplasm should be considered to prevent otherwise. History of bronchoscopy would be helpful. PET scan is suggested when appropriate. There is a left hepatic cyst with benign features which is enlarged slightly since prior study. This may be associated benign enlargement over time. Electronically Signed: Luly Chandler MD at 4:34 EDT Tel , Service support , Pulmonology Oncology Operations: None Procedures: Bronchoscopy Summary of Care Provided: The patient is a 59 year old M with chronic back pain who was admitted with shortness of breath, hemoptysis, wheezing and found to have a lung mass on imaging. His admitting chest x-ray showed enlarged masslike enlargement of the right hilum suspicious for lymphadenopathy/mass. CT of the chest shows a mass with infiltrate in the right hilum, encasing the right mainstem bronchus with reactive metastatic lymph nodes. Patient underwent bronchoscopy by pulmonology and it showed a partially obstructing, 80% obstructing mass in the right mainstem bronchus with complete obstruction of the right upper lobe orifice. The mass was endobronchial and fungating. Extrinsic compression was also found in the right mainstem bronchus. Endobronchial biopsies were taken in the right mainstem bronchus. Postprocedure, patient was seen and examined. He was on oxygen. He was advised to be evaluated for ambulatory oxygen. Patient refused. He will follow-up with pulmonology in the outpatient within 2 weeks. Subjective: On the day of discharge, patient was seen and examined. He had bronchoscopy today with biopsies. He denied any worsening SOB. He had cough spells post- bronchoscopy. - Physical Exam Vitals/I&O's: Vital Signs Temp Pulse Resp BP Pulse Ox 98.6 F 99 20 H 150/92 H 94 11/12/19 11:25 11/12/19 11:25 11/12/19 11:25 11/12/19 11:25 11/12/19 11:25 Oxygen Flow Rate (L/min) 3 Oxygen Delivery Method Nasal Cannula Weight: 124.9 kg Body Mass Index (BMI) 38.4 Finger Stick Blood Glucose 127 Intake and Output for Last 24 Hours 11/10/19 11/11/19 11/12/19 23:59 23:59 23:59 Intake Total 500 / 500 Balance 500 / 500 General: Alert, Oriented x3, Cooperative, - - in mild respiratory distress, on 3L oxygen HEENT: Atraumatic, PERRLA, EOMI, Normocephalic Oral: Moist Mucosa Neck: Supple Lungs: Clear to auscultation, Normal air movement Cardiovascular: Regular rate, Regular Rhythm, Normal S1, Normal S2, No murmurs Abdomen: Bowel Sounds Present, Soft, Non Tender, Non-Distended, No Hepato- splenomegaly Extremities: No edema Skin: No rashes Musculoskeletal: No Tenderness to Palpation of Joints or Extremities Lymphatic: No Cervical, Supraclavicular, or Inguinal Adenopathy Neurological: Cranial nerves II-XII grossly intact, Neuro grossly intact Psych/Mental Status: Normal Affect, Appropriate Laboratory Results 11/12/19 02:20: WBC 7.6, RBC 5.08, Hgb 15.6, Hct 46.9, MCV 92.3, MCH 30.7, MCHC 33.3, RDW Std Deviation 42.7, RDW Coeff of Shell 12.6, Plt Count 326, MPV 9.5, Immature Gran % (Auto) 0.300, Neut % (Auto) 64.7, Lymph % (Auto) 24.1, Cotton % (Auto) 8.9, Eos % (Auto) 1.6, Baso % (Auto) 0.4, Absolute Neuts (auto) 4.9, Absolute Lymphs (auto) 1.82, Nucleated RBC % 0 11/12/19 02:20: Sodium 141, Potassium 3.9, Chloride 108 H, Carbon Dioxide 30.0, Anion Gap 3 L, BUN 17, Creatinine 1.29, Estim Creat Clear Calc 66.48, Est GFR (MDRD) Af Amer 74, Est GFR (MDRD) Non-Af 61, BUN/Creatinine Ratio 13.2, Glucose 134 H, Calcium 9.1, Troponin I < 0.015 11/12/19 02:20: PT 12.2, INR 1.0 11/12/19 11:00: Fluid Source Pending, Fluid Color Pending, Fluid Appearance Pending, Fluid WBC Pending, Fluid RBC Pending, Fluid Tot Cell Count Pending, Fl Pathologist Comment Pending, Fluid Comment 2 Pending 11/12/19 11:00: Miscellaneous Cytology Pending 11/12/19 11:00: Fluid Source Pending, Fluid Color Pending, Fluid Appearance Pe nding, Fluid WBC Pending, Fluid RBC Pending, Fluid Tot Cell Count Pending, Fl Pathologist Comment Pending, Fluid Comment 2 Pending 11/12/19 11:00: Miscellaneous Cytology Pending Current Medications Acetaminophen (Tylenol) 650 mg PO Q6H PRN PRN PRN Reason: Pain Score 1-10/Temp > 100.7 F Albuterol Sulfate (Ventolin Aerosols) 2.5 mg INHALATION Q2H PRN PRN PRN Reason: Shortness of Breath/Wheezing Albuterol/Ipratropium (Duoneb) 3 ml INHALATION Q6HWA.RT [facility] Last Admin: 11/12/19 07:01 Dose: 3 ml Documented by: Lactated Ringer's () 1,000 mls @ 100 mls/hr IV .Q10H [facility] Last Admin: 11/12/19 09:32 Dose: 100 mls/hr Documented by: Melatonin (Melatonin) 3 mg PO QHS PRN PRN PRN Reason: INSOMNIA Ondansetron HCl (Zofran) 4 mg IV Q8H PRN PRN PRN Reason: NAUSEA/VOMITING Sodium Chloride () 10 - 40 ml IV UD PRN PRN Reason: SALINE FLUSH Discharge Diet: No Restrictions Discharge Activity: Return to Normal Activity Home Medications: Medications to take at Discharge Albuterol Inhaler [Ventolin Hfa] 2 puff INHALATION Q4H PRN PRN 30 Days #1 inhaler 11/12/19 Following Prescriptions Were Given to Patient: Albuterol Inhaler [Ventolin Hfa] 2 puff INHALATION Q4H PRN PRN 30 Days #1 inhaler PRN Reason: Sob &/Or Wheezing Prescription Printed Primary Care Physician: Care Physician,No Primary [Primary Care Provider] - Please follow up with your Primary Care Physician in: within 1-2 weeks Disposition: Home Minutes spent on discharge:: 40 Patient Condition:: Stable Medical Necessity - Tobacco Use Smoking Status: Current every day smoker Tobacco Use: Cigarettes Meaningful Use Info Meaningful Use Diagnoses (Choose all that apply): None applicable Inpatient E&M: 38740 Disch Hosp
--- NOTE | 2019-11-12 11:54 | PCA ---
CALLED [facility] TO SET UP APT PER CIARAN PASCUAL REQUEST AND KOSHER INSPECTOR SAYS SHE WILL GIVE PATIENT A CALL FROM OFFICE AFTER SHE TALKS TO ERNESTINA TO SEE WHEN HE WANTS TO SQUEEZE HIM IN
--- NOTE | 2019-11-12 12:05 | CASEMGMT ---
RN CM Face to Face with patient for initial transition planning/care coordination assessment. RN CM introduced self and role at [facility]. Patient lying in bed, alert and oriented. Patient willing to participate in assessment and is able to answer all questions appropriately. Care providers, pharmacy, and demographics verified. Patient wishes to discharge home, denies need for home health at this time. Patient states he has no further needs or concerns at this time. CM to follow for discharge planning needs that may arise. PCP: No PCP, PCP list given to patient Specialists: none Preferred Pharmacy: [facility] Insurance: MMO Prescription Benefit: yes Living Will/HPOA: yes, son Marco A Sal LNOK: son Living Arrangements: Patient lives alone in a house, states he is independent at home. Transportation: self DME/HHC: Patient refusing oxygen if he qualifies, denies needs at this time. Hospitalist updated that patient refuses to discharge on home oxygen. Disposition Plan: Patient to discharge home with follow-up plans in place. Lore CAMPBELL, RN, CM
--- NOTE | 2019-11-12 12:46 | ONC.CONS.INP ---
Consult Referring Physician: Dr. karthik Peter Consult Results: Right hilar mass with lung collapse. Subjective Date of Service:: 11/12/19 Chief Complaint: Shortness of breath & pain with breathing History of Present Illness: 59-year-old man presented to the ER with shortness of breath and pain associated with the cough dating back to January 2019. CT scan on 11/13/17 showed right hilar mass encasing right pulmonary artery and right mainstem bronchus with mediastinal adenopathy, postobstructive collapse of the right upper lobe. He was seen by Dr. Caicedo and had FOB with biopsy this morning. Past Medical History: Chronic Problems Chronic pain (Chronic) Lymphedema (Chronic) Chronic lower Back Pain due to (Chronic) Past Medical/Surgical History: Past Medical History - Most Recent Inpatient Visit Past Medical History Start: 11/12/19 05:43 Text: Status: Complete Freq: ONCE Protocol: Document 11/12/19 05:43 DC (Rec: 11/12/19 05:53 DC [id number]) BMI Required to complete PMH What is Patient's BMI 38.4 Past Medical History Unable History Recalled No Query Text:Pt Unable/Family Not Present Neurologic Medical History Hx Stroke/TIA No Hx Dementia/Alzheimer's No Hx Parkinson's Disease No Hx Seizures No Hx Multiple Sclerosis No Hx Migraines No Cardiac Medical History VTE Present on Admission No Hx of Deep Vein Thrombosis/VTE/PE No Hx Hypertension No: denies Hx Chest Pain/Angina No Hx Heart Attack No Hx Cardiac Surgery/Stents/Etc. No Hx Heart Failure Yes: pt unsure Hx Pacemaker/AICD No Hx Irregular Heartbeat and/or Afib No Hx Anticoagulant Therapy No Query Text:(Coumadin, Aspirin, Plavix, Xarelto, etc.) Hx Pain in Legs when Walking/Leg Cramps Yes Respiratory Medical History Hx COPD Yes Hx Emphysema No Hx Smoking Yes Smoking Status Current some day smoker Tobacco Use Cigarettes Years Smoking 45 Packs Smoked per Day 0.5 Hx Smoking Cessation Counseling Yes Hx Smoking Exposure No Hx Tobacco Use in last 12 months Yes Sent to [facility] Yes Hx of Pipe Smoking No Hx Sleep Apnea Yes CPAP No: used to wear with O2 BIPAP No STOP Results Positive Comments pt quit using CPAP GI Medical History Hx Ulcer No Hx Cirrhosis No Hx GI Bleed No Hx Unplanned Weight Loss No Genitourinary Medical History Indwelling Catheter in Place on Arrival/ No Admission Hx Renal Disease No Hx Dialysis No Musculoskeletal History Hx Arthritis Yes Hx Rheumatoid Arthritis No Endocrine Medical History Hx Diabetes No Hx Thyroid Disease No Hematologic Medical History Hx of Blood Transfusion No Hx of Transfusion in last 3 Months No Ever experience any problems with No transfusion(s)? Hx of Preganancy in last 3 Months N/A Nurse Filling Out Transfusion & DCLARK Questions: Date: 11/12/19 Time: 05:52 Psycho/Social Medical History Hx Depression Yes Hx Anxiety Yes Hx Behavior Disorder No Hx Alcohol Use Yes Hx Substance Use Yes: TEENAGE DID MARIJUANA Other Medical History Hx Blood Disorders No Hx Anemia No Hx Cancer No Hx Drug Resistant Organism No Wound/Pressure Injury Present on Arrival No /Admission Query Text:If yes, chart assessment in Shift/Clinical Findings Central Line/PICC/VAD Present on Arrival No /Admission Antibiotics within last 7 days? No Methicillin Resistant Staphylococcus aureus Screening Active MRSA No Risk for Readmission Number of Risk Factors 7 At Risk for Readmission Patient is At Risk For Readmission Patient is eligible for Call Back Y Paternal Family History: - - Father of suicide Maternal Family History: - - heart issues, mother with mi recently - Social History Smoking Status: Current every day smoker Tobacco Use: Cigarettes Alcohol: None Drugs: None Allergies/Adverse Reactions: Allergy/AdvReac Type Severity Reaction Status Date / Time No Known Allergies Allergy Verified 11/12/19 02:22 Review of Systems Constitutional:: Denies: Fever, Sweats, Weight loss, Appetite change, Chills Cardiovascular:: Reports: Chest pain Respiratory: Reports: Cough - since January 2019. Gastrointestinal:: Denies: Abdominal pain, Nausea, Vomiting, Diarrhea, Constipation, Hematochezia Genitourinary: Denies: Dysuria, Hematuria, 15, Flank pain Musculoskeletal:: Denies: Back pain, Myalgia, Arthralgia Skin: Denies: Rash, Skin Changes, Wounds Neurological:: Denies: Headache, Dizziness, Visual changes, Tinnitus, Hearing loss Vital Signs Temperature 98.3 F 11/12/19 11:50 Temperature Source Temporal 11/12/19 11:50 Pulse Rate 97 11/12/19 11:50 Respiratory Rate 20 H 11/12/19 11:50 Respiratory Effort 11/12/19 02:23 Respiratory Depth Normal 11/12/19 02:23 Respiratory Pattern Normal 11/12/19 11:00 Blood Pressure 136/86 H 11/12/19 11:50 Blood Pressure Mean 102 11/12/19 11:50 Blood Pressure Source Monitor 11/12/19 11:50 Blood Pressure Position Semi-Fowlers 11/12/19 11:50 Blood Pressure Location Left Arm 11/12/19 11:50 Baseline BP 131/76 11/12/19 11:25 Pulse Ox 96 11/12/19 11:50 Oxygen Delivery Method Nasal Cannula 11/12/19 11:50 Oxygen Flow Rate (L/min) 3 11/12/19 11:50 - Physical Exam General: Alert, Oriented x3, No apparent distress HEENT: Atraumatic, PERRLA, EOMI, Normocephalic Oropharynx:: Dry mucosa Neck:: Supple, Trachea midline. Negative for: JVD, bilateral Cardiac:: Regular rate, Regular rhythm, Normal S1, Normal S2. Negative for: Murmur Lungs: Clear to auscultation, Excusion symmetrical. Negative for: Rhonchi, Wheezes Abdomen:: Bowel sounds x 4, Soft, Non-tender, Non-distended. Negative for: Hepatosplenomegaly Extremities:: Negative for: Cyanosis, Edema Neurological: Neuro grossly intact Skin:: Negative for: Lesions, Rash, Petechiae, Ecchymosis Psychiatric:: Appropriate affect, Euthymic Lymphatics:: Negative for: Cervical lymphadenopathy, Supraclavicular lymphadenopathy, Axillary lymphadenopathy Laboratory Data: Laboratory Tests 11/12/19 11/12/19 11/12/19 Range/Units 02:20 02:20 02:20 WBC 7.6 (4.4-11.0) K/mm3 RBC 5.08 (4.6-6.2) M/mm3 Hgb 15.6 (13.0-16.5) g/dL Hct 46.9 (40-54) % MCV 92.3 (80-94) fL MCH 30.7 (27.0-32.0) pg MCHC 33.3 (32-36) g/dL RDW Std Deviation 42.7 (35.1-43.9) fl RDW Coeff of Shell 12.6 (11.6-14.6) % Plt Count 326 (150-450) K/mm3 MPV 9.5 (6.2-12.0) fl Immature Gran % (Auto) 0.300 (0.0-0.9) % Neut % (Auto) 64.7 (47-70) % Lymph % (Auto) 24.1 (19-41) % [place] % (Auto) 8.9 (0-10) % Eos % (Auto) 1.6 (0-5) % Baso % (Auto) 0.4 (0-1) % Absolute Neuts (auto) 4.9 (2.0-7.7) X10^3/uL Absolute Lymphs (auto) 1.82 (0.83-4.51) X10^3/uL Nucleated RBC % 0 (0-5) % PT 12.2 (11.7-14.9) SECONDS INR 1.0 Sodium 141 (136-145) mmol/L Potassium 3.9 (3.5-5.1) mmol/L Chloride 108 H (98-107) mmol/L Carbon Dioxide 30.0 (21.0-32.0) mmol/L Anion Gap 3 L (5-15) BUN 17 (7-18) mg/dL Creatinine 1.29 (0.70-1.30) mg/dL Estim Creat Clear Calc 66.48 ml/min Est GFR (MDRD) Af Amer 74 (>60) mL/min Est GFR (MDRD) Non-Af 61 (>60) mL/min BUN/Creatinine Ratio 13.2 (10-20) RATIO Glucose 134 H (74-106) mg/dL Calcium 9.1 (8.5-10.1) mg/dL Troponin I < 0.015 (<0.045) ng/mL Diagnostic Data: Diagnostic Data Chest X-Ray 11/12/19 02:25 IMPRESSION: Enlarged masslike enlargement of the right hilum suspicious for lymphadenopathy/mass. Recommend CT scan of the chest. Electronically Signed: Luly Chandler MD at 3:34 EDT Tel , Service support , Chest CT 11/12/19 03:45 IMPRESSION: There is a mass which is infiltrate in the right hilum narrowed and encased the right mainstem bronchus with adjacent reactive metastatic lymph nodes. Findings are most consistent with a postobstructive collapse/pneumonitis of the right upper lobe and right middle lobe. Neoplasm should be considered to prevent otherwise. History of bronchoscopy would be helpful. PET scan is suggested when appropriate. There is a left hepatic cyst with benign features which is enlarged slightly since prior study. This may be associated benign enlargement over time. Electronically Signed: Luly Chandler MD at 4:34 EDT Tel , Service support , Assessment and Plan Right Hilar mass with Partial RUL collapse most likely Lung cancer. Has had FOB with Biopsy by Dr. Caicedo this morning. Discussed Lung cancer management with Pt. He will need Further work up with PET/CT as outpatient before therapy with chemotherapy and Radiation therapy. He is not a candidate for surgery. Suggestion: Can be discharge if and when stable. Follow up in [facility] for further evaluation and management. Thank you. Medications: Prescriptions This Visit Medication Instructions Recorded Albuterol Inhaler [Ventolin Hfa] 2 puff INHALATION Q4H PRN PRN 30 11/12/19 Days #1 inhaler Medications Added to Medication List This Visit Category Date Time Status 0.9% Saline Lock Med 11/12/19 05:45 Active 10 - 40 ml IV UD PRN Acetaminophen [Tylenol] Med 11/12/19 05:43 Active 650 mg PO Q6H PRN PRN Albuterol Aerosols [Ventolin Aerosols] Med 11/12/19 05:43 Active 2.5 mg INHALATION Q2H PRN PRN Ipratropium/Albuterol Sulfate [Duoneb] Med 11/12/19 08:00 Active 3 ml INHALATION Q6HWA.RT Lactated Ringers 1,000 ml Med 11/12/19 09:35 Active IV 100 mls/hr Melatonin Med 11/12/19 05:43 Active 3 mg PO QHS PRN PRN Ondansetron [Zofran] Med 11/12/19 05:43 Active 4 mg IV Q8H PRN PRN Primary Care Provider: No Primary Care Phys Referring Provider: Dr. Francisco Girard MD - Problem List (1) Lung mass Status: Acute (2) Lung cancer Status: Acute Qualifiers: Laterality: right Lung location: overlapping sites Qualified Code(s): C34.81 - Malignant neoplasm of overlapping sites of right bronchus and lung Office Visits / Consults: [id number] IP Consult L4
[2019-11-12 13:20] LABS: Appearance/Body Fluid CLOUDY; Color/Body Fluid RED; Source- Body Fluid BRONCHIAL LAVAGE
[2019-11-12 13:21] LABS: Lymphocytes 10 %; Monocytes 6 %; Neutrophil (Segs) 80 %; Other Cell Type/BF 4 %
[2019-11-12 14:16] LABS: White Blood Count/Body Fluid 3204 /mm3
[2019-11-12 14:18] LABS: Body Fluid QC Type(s) BF1Q
[2019-11-13 12:46] LABS: Pathologist Comment/Body Fluid Reviewed
== END 2019-11-12 12:58 | disposition home or self-care (01) ==
LOC: ED 04:48 → MS3 07:03
PROVIDERS: Internal Medicine Critical Care Medicine; Admitting Provider Hospitalist; Emergency Provider Emergency Medicine; Referring Provider Hospitalist; Visit Provider Internal Medicine
PROC: 0BJ08ZZ Inspection of Tracheobronchial Tree, Via Natural or Artificial Opening Endoscopic (ICD-10-PCS; CPT 31622; principal; 2019-11-12 09:45)
DX: C34.81 Malignant neoplasm of overlapping sites of right bronchus and lung (principal); R91.8 Other nonspecific abnormal finding of lung field; F17.210 Nicotine dependence, cigarettes, uncomplicated; E66.01 Morbid (severe) obesity due to excess calories; Z68.38 Body mass index [BMI] 38.0-38.9, adult; M19.90 Unspecified osteoarthritis, unspecified site
CPT/HCPCS: 31623; 31625; 71046; 71260; 80048; 84484; 85025; 85610; 87015; 87070; 87077; 87116; 87186; 87205; 87206; 88108; 88161; 88305; 88312; 88313; 88341; 88342; 89050; 93005; 94640; 96360; 96361; 99218; 99285; J7040; J7120; Q9967; A4216; G0378

== ENCOUNTER → 2019-11-22 07:00 | Outpatient (CLI) | payer OTHER, SELFPAY ==
[2019-11-14 06:53] VITALS: BMI 39.2
--- NOTE | 2019-11-22 07:01 | MRI_ITS ---
STUDY: MRI BRAIN WITH AND WITHOUT CONTRAST REASON FOR EXAM: Male, 59 years old. New lung CA dx TECHNIQUE: Standardized multiplanar fat and water weighted pulse sequences were obtained. 24ml DOtarem via IV was administered for the contrast portion of the examination. COMPARISON: CT 11/27/2014 FINDINGS: Normal size of the ventricles and extra-axial spaces for the patient''s age. Normal white matter tracts of the supratentorial brain. There is no evidence for recent intracranial ischemia or other cause of cytotoxic edema on diffusion weighted imaging (DWI). Normal T2* images of the brain without demonstrated susceptibility artifact. There is no demonstrated hemosiderin stain. Normal bilateral basal ganglia. Normal thalami. There is no extra-axial fluid accumulation. Normal flow voids within the major intracranial circulation suggesting patency by spin echo criteria. Normal venous enhancement. There is no enhancing intra-axial or extra-axial abnormality. Normal sella turcica, pituitary gland, infundibular stalk, optic chiasm and hypothalamus. Normal tectal plate and pineal gland. Normal midbrain, lashonda and medulla. Normal cerebellum. Normal basal cisterns. Normal bilateral temporal bones. Normal bilateral internal auditory canals. No demonstrated orbital abnormality, within the constraints of a routine brain study. Normal visualized paranasal sinuses. Normal calvarium and skull base. Normal visualized soft tissue structures. Normal visualized upper cervical spine. MRI/Brain W/WO Contrast IMPRESSION: Normal unenhanced and enhanced MRI of the brain. No MR evidence metastatic disease. Electronically Signed: Pastor Garcia MD at 8:31 EDT Tel , Service support ,
== END ==
LOC: MRI 07:01
PROVIDERS: Referring Provider Internal Medicine Critical Care Medicine; Visit Provider Internal Medicine Critical Care Medicine
DX: C34.90 Malignant neoplasm of unspecified part of unspecified bronchus or lung (principal)
CPT/HCPCS: 70553; A9575

== ENCOUNTER → 2019-12-10 13:17 | Outpatient (CLI) | payer OTHER, SELFPAY ==
[2019-11-14 06:53] VITALS: BMI 39.2
--- NOTE | 2019-12-10 15:00 | PET_ITS ---
EXAMINATION: FDG PET-CT INDICATIONS: A 59-year-old male with history of carcinoma of the lung presenting for initial staging examination. COMPARISON EXAMINATION: CT of the chest report dated 11/12/2019 INDEX LESION SIZE SUV INTERPRETATION Right thoracic perihilum-mediastinum 32.5 x 59.1-mm (frame 195) 12.9 Fulfills quantitative criteria for viable neoplasm Carinal level mediastinum 25.4-mm (largest) (frame 201) 7.5 (max) Fulfills quantitative criteria for viable neoplasm TECHNIQUE: Following the intravenous administration of 15.82 mCi of F-18 deoxyglucose via the left antecubital fossa, multiplanar image acquisitions of the neck, chest, abdomen and pelvis to level of mid thigh, obtained at one hour post radiopharmaceutical administration contemporaneously interpreted with the current CT of the neck, chest, abdomen and pelvis, to level of mid thigh, dated 12/10/[address] of the chest report dated 11/12/2019 reveals: BLOOD GLUCOSE LEVEL:?? 103 mg/dl?HEIGHT:?71 inches?WEIGHT: 270 lbs. FINDINGS: 1. An intense focus of increased glucose metabolism is manifest in the right thoracic perihilum extending to the right paratracheal mediastinum, confluent in presentation. The calculated maximal standard uptake value is 12.9. The maximal axial diameter of the corresponding metabolic, morphologic abnormality on review of CT of the chest dated 12/10/2019 is 32.5-mm (transverse) x 59.1-mm (AP). 2. Several independent nodular foci of increased FDG distribution are noted in the carinal level mediastinum generating a calculated maximal standard uptake value of 7.5. The maximal axial diameter of the largest hypermetabolic soft tissue density on review of CT of the chest dated 12/10/2019 is 25.4-mm (AP). 3. Normal physiologic distribution of the radiopharmaceutical is apparent in the hepatic (3.2) and splenic parenchyma, both renal units, bladder and visualized intestinal tract. Diffuse radiopharmaceutical concentration is noted in all four quadrants of the abdomen and pelvis. Pertinent CT findings are as follows: CHEST: Atelectatic change is noted in the right upper anterior lung. There is atherosclerotic calcification defined in the thoracic aorta without evidence of dilatation-aneurysm formation. Coronary arterial calcification is observed. Bilateral subcentimeter axillary and additional mediastinal soft tissue reveals no evidence of quantitatively significant increased FDG uptake. There are no additional parenchymal densities-nodules defined in the right and left hemithorax with discernible increased FDG uptake. ABDOMEN AND PELVIS: An attenuation abnormality noted in the left lobe of the hepatic parenchyma demonstrates photopenia on the metabolic data set consistent with cyst formation. Cholelithiasis is defined. There is atherosclerotic calcification defined in the abdominal aorta without evidence of dilatation-aneurysm formation. Pelvic arterial calcification is demonstrated. Bilateral inguinal soft tissue with fatty hilus is ametabolic. Calcified phlebolith appears evident in the right lower hemipelvis. SKELETAL: Degenerative changes are noted in the cervical, thoracic and lumbar spine. PET/PET/CT Tumor Base -Thigh Init IMPRESSION: 1. ABNORMAL EXAMINATION INDICATIVE OF MALIGNANT VIABLE NEOPLASM. 2. Increased glucose concentration observed in the right thoracic perihilum, as well as several nodular foci within the mediastinal structures fulfills quantitative criteria for viable neoplasm. (Riaz et al, Journal of Clinical Oncology 16:2142, 1998). 3. No other quantitatively significant hypermetabolic abnormalities are noted. There is no definitive scintigraphic evidence of distant metastatic disease. Electronic Signature Pastor oRdriguez D.O. Accurate Quantification of SUVs for this report are calculated using the exclusive [employer]. Electronically Signed: Pastor Rodriguez DO at 19:00 EDT Tel , Service support ,
== END ==
PROVIDERS: Referring Provider Internal Medicine Critical Care Medicine; Visit Provider Internal Medicine Critical Care Medicine
DX: C34.01 Malignant neoplasm of right main bronchus (principal)
CPT/HCPCS: 78815; A9552

== ENCOUNTER → 2019-12-19 08:16 | Outpatient (CLI) | payer OTHER, SELFPAY ==
[2019-11-14 06:53] VITALS: BMI 39.2
--- NOTE | 2019-12-20 10:02 | PFT ---
INTRODUCTION: The patient is a 59-year-old male that presents for pulmonary function studies secondary to a diagnosis of nicotine dependence. Respiratory therapy reports good patient effort. Bronchodilators were used during testing. INTERPRETATION: Forced expiration spirometry demonstrates the presence of a severe large airways obstructive ventilatory defect. There was a significant response to aerosolized bronchodilators. Spirograms are of good quality and do not plateau indicating slow emptying of the lungs. Body plethysmography was performed and reveals a decreased TLC to 4.3 L, 62% of predicted, indicative of a moderate restrictive ventilatory impairment. The remainder of the lung volumes are symmetrically reduced. Diffusing capacity by single breath CO is reduced to 56% of predicted. IMPRESSION: Severe mixed ventilatory defect with significant bronchodilator response and moderate reduction in diffusing capacity.
== END ==
PROVIDERS: Referring Provider Internal Medicine Critical Care Medicine; Visit Provider Internal Medicine Critical Care Medicine
DX: F17.210 Nicotine dependence, cigarettes, uncomplicated (principal)
CPT/HCPCS: 94060; 94726; 94729

== ENCOUNTER 2020-01-02 10:12 | Emergency (ER) | payer OTHER, SELFPAY ==
[2019-11-14 06:53] VITALS: BMI 39.2
[2020-01-02] VITALS (15 sets, daily range): BP systolic 128–151; BP diastolic 74–101; PULSE 81–117; RESP 18–28; TEMP 36.1–36.8; O2SAT 93–97; BMI 36.9
--- NOTE | 2020-01-02 10:13 | ED.RN ---
place on 2o2 for sob and labor of breathing. waiting on room
--- NOTE | 2020-01-02 10:56 | CT_ITS ---
STUDY: CTA CHEST REASON FOR EXAM: Male, 59 years old. CP WITH SOB. LUNG CA, PT UNABLE TO HOLD BREATH RADIATION DOSAGE (If Supplied By Facility): CTDIvol = ( 13.85 ) mGy, DLP = ( 532.73 ) mGycm TECHNIQUE: The examination was performed with the intravenous administration of IV 100mL Isovue-370. Post-processing of the angiographic images was performed, with multiplanar reformation and 3D reconstruction. Individualized dose optimization techniques were used for this CT. COMPARISON: PET CT 12/10/[address] 11/12/2019 FINDINGS: There is limited enhancement of the main pulmonary artery and right and left pulmonary arteries. There is limited enhancement of the bilateral peripheral pulmonary arteries. Examination is nondiagnostic for pulmonary embolus. Normal thoracic aorta and visualized great vessels. There is no demonstrated aortic dissection. Normal heart and pericardium. There is been interval lung resection with associated right lung volume loss and rightward mediastinal shift. The remaining right pulmonary parenchyma demonstrates extensive consolidation with associated small effusion. Underlying mass is not excluded. Several prominent right mediastinal lymph nodes are identified measuring up to 1.2 cm in short axis dimension series 2 image 139. Well aerated and expanded left lung with evidence of emphysematous disease. Question of focal nodule at the left base measuring up to 9 mm series 2 image 87, not definitively identified on the prior examination. Normal chest wall structures. Normal osseous structures. Abdomen demonstrates a gallstone. Low-attenuation lesions of the left liver and right liver adjacent to the gallbladder fossa are poorly characterized but most likely represent cysts. CT/CTA Chest W/WO Contrast IMPRESSION: Non diagnostic CTA chest examination for evaluation of pulmonary embolism. No arterial dissection. Postsurgical volume loss of the right lung which now demonstrates extensive consolidation and associated pleural effusion, etiology nonspecific atelectasis or pneumonia are most likely considerations. Hilar/mediastinal lymphadenopathy may indicate active metastatic disease as clinically indicated. Question new left base pulmonary nodule. N.B. : The above information has been verbally conveyed by Diogo Palmer to Dr. Musa MD, on 01/02/2020 13:03:28 (ET). Electronically Signed: Diogo Palmer, at 13:11 EDT Tel , Service support ,
--- NOTE | 2020-01-02 10:56 | EKG12_ITS ---
Test Reason : CP Blood Pressure : / mmHG Vent. Rate : 108 BPM Atrial Rate : 108 BPM P-R Int : 154 ms QRS Dur : 098 ms QT Int : 338 ms P-R-T Axes : 040 055 017 degrees QTc Int : 452 ms Sinus tachycardia with Fusion complexes Otherwise normal ECG Confirmed by LATONYA CASTILLO, HERMINIA ([id number]), news editor NORBERT RICHEY ([id number]) on 01/08/2020 10:58:31 AM Referred By: DRU Confirmed By:MOON HANKS MD
[2020-01-02] MEDS: Ondansetron 4 MG/2 ML Vial IV ×2 (11:15→15:52)
[2020-01-02] MEDS: Morphine 4 MG/ML Syringe IV ×2 (11:15→15:52)
[2020-01-02] MEDS: 0.9% Normal Saline 1,000 ML 150 ML IV (11:15)
[2020-01-02 11:23] LABS: Absolute Lymphocyte Count 0.61 X10^3/uL (0.83-4.51); Absolute Neutrophil Count 5.3 X10^3/uL (2.0-7.7); Basophil# 0.01 X10^3/uL; Basophil% 0.2 % (0-1); Eosinophil# 0.03 X10^3/uL; Eosinophils% 0.5 % (0-5); Hematocrit 43.3 % (40-54); Hemoglobin 14.1 g/dL (13.0-16.5); Lymphocyte # 0.61 X10^3/ul (4.0); Lymphocyte % 9.6 % (19-41); Mean Corp Hgb Conc 32.6 g/dL (32-36); Mean Corpuscular Hgb 30.3 pg (27.0-32.0); Mean Corpuscular Volume 92.9 fL (80-94); Mean Platelet Vol. 9.4 fl (6.2-12.0); Monocyte# 0.36 X10^3/uL; Monocyte% 5.7 % (0-10); NRBC Flagged by Analyzer 0 % (0-5); Neutrophil # 5.29 X10^3/uL (2.7-7.7); Neutrophil % 83.5 % (47-70); Platelet Count 312 K/mm3 (150-450); RBC Distribution Width CV 12.6 % (11.6-14.6); Red Blood Count 4.66 M/mm3 (4.6-6.2); White Blood Count 6.3 K/mm3 (4.4-11.0)
[2020-01-02 12:01] LABS: BNP,B-Type NATRIURETIC PEPTIDE 54.2 pg/mL (0-100)
[2020-01-02 12:08] LABS: Anion Gap 3 (5-15); BUN 11 mg/dL (7-18); Calcium,Total 9.6 mg/dL (8.5-10.1); Chloride 104 mmol/L (98-107); EST Glomerular Filtration Rate 73 mL/min (>60); Est Glom Filt Rate - Afr Amer 88 mL/min (>60); Estimated Creatinine Clearance 77.96 ml/min; Glucose 138 mg/dL (74-106); Potassium 4.5 mmol/L (3.5-5.1); Sodium Level 137 mmol/L (136-145)
--- NOTE | 2020-01-02 13:08 | ED.VISSUMM ---
- ER Visit Summary Date of Service: 01/02/20 Chief Complaint: [Shortness of breath] History of Present Illness: The patient is a 59 M [presents to the emergency department with complaint of shortness of breath that is progressively gotten worse since yesterday. Patient was diagnosed with a right lung mass several months ago and was started on chemotherapy and radiation. Patient denies any fever or cough. Patient does complain of exertional dyspnea. He complains of right-sided chest pain. He denies recent travel or surgery. Patient does have history of schizophrenia.] Physical Examination: [HEENT-PERRLA, EOMI. Cranial nerves II through XII grossly intact. TMs clear. Mucous membranes moist. No adenopathy. Cardiovascular-regular rate and rhythm without murmur or ectopy Lungs-diminished breath sounds on the right. Patient is tachypneic. Patient has diffuse rhonchi on the right and rales in the bases. No accessory muscle use or retractions noted. Abdomen-normoactive bowel sounds, soft, nontender, no rebound or rigidity, no peritoneal signs. Extremities-intact ?4, normal range of motion, normal pulses, atraumatic] Test Results: [EKG obtained on arrival shows sinus tachycardia with a ventricular rate of 108 bpm. CBC with differential count 6.3, hemoglobin 14, hematocrit 43, platelets 312. Chemistries unremarkable. Troponin was less than 0.015. BNP was 54. CT scan of the chest with IV contrast to rule out PE was obtained which did not have good timing of IV contrast and the study was nonconclusive for PE. Patient did have significant diminished volumes in the right lung with a white out type appearance with atelectasis versus fluid versus infectious process. ] Emergency Department Course and Treatment: [IV line established on arrival. Patient was placed on a gambling monitor.] Treatment Plan: [Admit for further work-up and evaluation of his dyspnea. Patient was evaluated by Dr. Chapman who discussed case with Dr. Caicedo and Dr. Bharath Casillas. It was recommended that patient be transferred to tertiary care center for further work-up and management. There is concerned that patient has obstructive collapse of lung that may require intervention beyond capabilities here at [facility].] Disposition: [Admit] Impression: [Dyspnea Right-sided chest pain Right lung mass ] This note was generated with [employer] software. It may contain incorrect words, spelling, and punctuation that were not noted in review of the chart prior to signing ED Disposition - Plan for ED Patient: Referrals: Care Physician,No Primary [Primary Care Provider] -
[2020-01-02] MEDS: Ipratropium/Albuterol Sulfate 3 ML AMPUL.NEB INHALATION (16:12)
== END 2020-01-02 19:58 | disposition short-term general hospital (02) ==
LOC: ED 11:36
PROVIDERS: Emergency Provider Emergency Medicine
DX: R06.00 Dyspnea, unspecified (principal); R07.9 Chest pain, unspecified; R91.8 Other nonspecific abnormal finding of lung field; R06.82 Tachypnea, not elsewhere classified; E66.9 Obesity, unspecified; F17.290 Nicotine dependence, other tobacco product, uncomplicated; Z85.118 Personal history of other malignant neoplasm of bronchus and lung; Z92.21 Personal history of antineoplastic chemotherapy; Z92.3 Personal history of irradiation
CPT/HCPCS: 71275; 80048; 83880; 84484; 85025; 93005; 94640; 94760; 96361; 96374; 96375; 96376; 99285; J7030; Q9967; A4216; J2405

== ENCOUNTER 2020-01-24 10:18 | Inpatient (IN) | payer OTHER, SELFPAY ==
[2020-01-02 10:14] VITALS: BMI 36.9
[2020-01-24] VITALS (13 sets, daily range): BP systolic 121–131; BP diastolic 78–90; PULSE 85–116; RESP 16–32; TEMP 36.4–36.9; O2SAT 92–99; BMI 36.9; BMI 34.6
--- NOTE | 2020-01-24 10:31 | EKG12_ITS ---
Test Reason : Blood Pressure : / mmHG Vent. Rate : 107 BPM Atrial Rate : 107 BPM P-R Int : 158 ms QRS Dur : 106 ms QT Int : 358 ms P-R-T Axes : 051 075 033 degrees QTc Int : 477 ms Sinus tachycardia Otherwise normal ECG Confirmed by NATALIA CASTILLO, JAJA ([id number]), editorial clerk NORBERT RICHEY ([id number]) on 01/28/2020 11:13:16 AM Referred By: JESSICA Confirmed By:JAJA FISHER MD
--- NOTE | 2020-01-24 10:32 | ED.VIS.GEN ---
History of Present Illness Chief Complaint: Shortness of Breath Onset: Yesterday Context: Sudden Onset Timing: Continuous Quality: Shortness of breath Location: Respiratory concern for lung collapse Current Severity: Moderate Maximum Severity: Severe Worsened by: Activity Relieved by: Nothing Associated Symptoms: Slight cough Narrative: Patient is a 59-year-old male who was a smoker and was diagnosed in October with stage III lung cancer. He is uncertain of type. He received his last dose of chemotherapy on Monday. He states the shortness of breath started abruptly after radiation therapy yesterday. He states this is similar to when his lung collapsed and he required a debulk of it and placement of stent. He denies prior VTE. He denies diabetes, hypertension, hypercholesterolemia or coronary disease. Patient does have a pain pump in place. Patient denies headache, visual disturbance, ocular disturbance or auditory disturbance. He denies neck pain. He denies discoloration of his legs, swelling or pain. Prior similar symptoms: Yes - Lung collapse due to obstruction Recent Illness/Hospitalization: Yes - Past Medical History (1) Lung cancer Status: Acute (2) Chronic lower Back Pain due to Status: Chronic (3) Schizophrenia Status: Inactive Comment: review of his old chart documents schizophrenia BUT review of the notes from the psychiatrist at mental health clinic does not support this. HX is + for severe depression and anxiety Past Medical History - Allergies and Home Meds Allergies/Adverse Reactions: Allergies No Known Allergies Allergy (Verified 01/24/20 10:18) Primary Care Physician: Care Physician,No Primary [Primary Care Provider] - Prior records reviewed: Yes Surgical History: - - spinal pain pump placed and extracted; and then replacement of a pain pump in abdomen Lives: Alone Smoking Status: Current every day smoker Alcohol: None - Family History Paternal Family History: Family History (Last Reviewed 11/14/19 @ 10:10 by Katy Elizabeth) Uncle Myocardial infarction Family History: Reports: - - Father of suicide Maternal Family History: Family History (Last Reviewed 11/14/19 @ 10:10 by Katy Elizabeth) Uncle Myocardial infarction Family History: Reports: - - heart issues, mother with mi recently Review of Systems General: Reports: Malaise, Weight loss. Denies: Chills, Fever, Subjective, Sweats Eyes: Denies: Visual changes - bilaterally, Blurred Vision - bilaterally ENT: Denies: Bilateral ear pain, Rhinorrhea, Sore throat Cardiovascular: Reports: Palpitations, Heart racing. Denies: Chest pain Respiratory: Reports: Dyspnea, Cough, Dyspnea on exertion. Denies: Sputum, Orthopnea, Paroxysmal nocturnal dyspnea Gastrointestinal: Reports: Abdominal pain, Nausea. Denies: Vomiting, Diarrhea, Melena, Hematochezia Genitourinary: Denies: Dysuria, Hematuria, Frequency Musculoskeletal: Denies: Myalgias, Arthralgias, Neck pain, Back pain, Swelling, Extremity Pain Skin: Denies: Rash, Wounds Neurological: Reports: Weakness. Denies: Headache, Parasthesia Endocrine: Denies: Polyuria, Polydipsia Hematologic: Denies: Easy bruising, Easy bleeding Physical Exam Vital Signs/Narrative: Vital Signs Temp Pulse Resp BP Pulse Ox 01/24/20 10:21 97.6 F L 116 H 32 H 121/90 H 98 Inital Vital Signs reviewed: Yes General: Well nourished, Well developed, Acute Distress Head: Normocephalic, Atraumatic Eyes: Perrl, EOMI, Pale conjunctiva. Negative for: Scleral icterus ENT: No rhinorrhea, TM's clear Neck: Supple, Nontender, No lymphadenopathy, No JVD Cardiovascular: Regular rhythm, No murmurs, Normal S1, Normal S2, Tachycardia Respiratory: Chest nontender, Rales - Left lower lobe posteriorly with inspiration., Decreased Air Movement - Decreased to absent air movement right upper lung field Abdomen: Soft, Nontender, Nondistended, Normal bowel sounds, No masses Rectal: Deferred Back: Nontender, Normal Inspection, - - Scar noted posterior iliac crest on the right due to pain pump placement. Extremities: Nontender. Negative for: Tenderness, Calf Tenderness Skin: No rash, No Trauma, Pallor. Negative for: Cyanosis, Diaphoresis, Jaundice, Rash Neurological: Alert, Oriented x3, Cranial nerves II-XII grossly intact, Normal Strength, Normal Sensation Psychological: Normal affect, Normal Mood Diagnostic/Tx/Re-eval Chest X-Ray - ED: 1 View, Read by ED Physician, Normal, Heart, Bony Structures, Right Infiltrate - Upper lobe infiltrate. 01/24/20 11:48 Chest 1 View (Portable) [RAD] Stat Laboratory Results 01/24/20 01/24/20 01/24/20 10:50 10:50 10:50 WBC 2.6 L RBC 3.95 L Hgb 12.3 L Hct 35.7 L MCV 90.4 MCH 31.1 MCHC 34.5 RDW Std Deviation 43.2 RDW Coeff of Shell 13.5 Plt Count 190 MPV 9.1 Immature Gran % (Auto) 0.000 Neut % (Auto) 75.3 H Lymph % (Auto) 19.0 [facility] % (Auto) 4.9 Eos % (Auto) 0.4 Baso % (Auto) 0.4 Absolute Neuts (auto) 2.0 Absolute Lymphs (auto) 0.50 L Nucleated RBC % 0 Differential Comment Diff Path Review May foll Platelet Estimate ADEQUATE RBC Morphology NORM C+C Sodium 138 Potassium 3.7 Chloride 106 Carbon Dioxide 24.0 Anion Gap 8 BUN 13 Creatinine 1.00 Estim Creat Clear Calc 85.76 Est GFR (MDRD) Af Amer 99 Est GFR (MDRD) Non-Af 82 BUN/Creatinine Ratio 13.0 Glucose 117 H Lactic Acid 1.4 Calcium 9.3 Total Bilirubin 0.80 AST 13 L ALT 22 Alkaline Phosphatase 73 Total Protein 7.8 Albumin 3.5 Globulin 4.3 H Albumin/Globulin Ratio 0.8 L Procalcitonin 01/24/20 10:50 WBC RBC Hgb Hct MCV MCH MCHC RDW Std Deviation RDW Coeff of Shell Plt Count MPV Immature Gran % (Auto) Neut % (Auto) Lymph % (Auto) [facility] % (Auto) Eos % (Auto) Baso % (Auto) Absolute Neuts (auto) Absolute Lymphs (auto) Nucleated RBC % Differential Comment Diff Path Review Platelet Estimate RBC Morphology Sodium Potassium Chloride Carbon Dioxide Anion Gap BUN Creatinine Estim Creat Clear Calc Est GFR (MDRD) Af Amer Est GFR (MDRD) Non-Af BUN/Creatinine Ratio Glucose Lactic Acid Calcium Total Bilirubin AST ALT Alkaline Phosphatase Total Protein Albumin Globulin Albumin/Globulin Ratio Procalcitonin < 0.04 - EKG Initial EKG Interpretation: Sinus Tachycardia - Sinus tachycardia with a ventricular rate of 107. GA interval 258 ms. QRS duration 106 ms. QT duration 3 and 58 ms. [place] is normal. Other than the tachycardia the EKG is normal. - Medical Decision Making With history of stage III cancer and abrupt onset of shortness of breath need to rule out pneumothorax, pulmonary embolus, lung collapse due to mass obstruction. Chest x-ray, appropriate blood work was ordered. Will obtain Covid test as well since he may require transfer. Patient was informed of his x-ray results and need for admission. He is blood pressure is 96 systolic. He received 1000 L bolus. His mean arterial is above 65. Suspect patient has an obstructive pneumonia due to his cancer. Since he was recently admitted to the [facility] and recently had chemotherapy and radiation therapy he was treated with Zosyn and vancomycin. Hospitalist was paged for admission. Covid test is pending. Spoke with hospitalist. Patient be admitted to PCU stepdown since he is hypotensive. Hospitalist requested not to transfer until Covid test results are known. 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
[2020-01-24 11:20] LABS: Basophil# 0.01 X10^3/uL; Basophil% 0.4 % (0-1); Eosinophil# 0.01 X10^3/uL; Eosinophils% 0.4 % (0-5); Hematocrit 35.7 % (40-54); Hemoglobin 12.3 g/dL (13.0-16.5); Mean Corp Hgb Conc 34.5 g/dL (32-36); Mean Corpuscular Hgb 31.1 pg (27.0-32.0); Mean Corpuscular Volume 90.4 fL (80-94); Mean Platelet Vol. 9.1 fl (6.2-12.0); Monocyte# 0.13 X10^3/uL; Monocyte% 4.9 % (0-10); NRBC Flagged by Analyzer 0 % (0-5); Neutrophil # 1.98 X10^3/uL (2.7-7.7); Neutrophil % 75.3 % (47-70); POSITIVE DIFFERENTIAL YES; Platelet Count 190 K/mm3 (150-450); RBC Distribution Width CV 13.5 % (11.6-14.6); RBC Distribution Width SD 43.2 fl (35.1-43.9); Red Blood Count 3.95 M/mm3 (4.6-6.2); White Blood Count 2.6 K/mm3 (4.4-11.0)
[2020-01-24 11:27] LABS: Differential Indicated SCAN CRITERIA MET
[2020-01-24 11:32] LABS: ALB/GLOB Ratio 0.8 RATIO (0.9-2.4); AST(SGOT) 13 U/L (15-37); Alanine Aminotransfer ALT/SGPT 22 U/L (16-61); Albumin, Serum 3.5 g/dL (3.2-5.0); Alkaline Phosphatase 73 U/L (45-117); Anion Gap 8 (5-15); BUN 13 mg/dL (7-18); Calcium,Total 9.3 mg/dL (8.5-10.1); Chloride 106 mmol/L (98-107); EST Glomerular Filtration Rate 82 mL/min (>60); Est Glom Filt Rate - Afr Amer 99 mL/min (>60); Estimated Creatinine Clearance 85.76 ml/min; Globulin 4.3 g/dL (2.2-4.2); Glucose 117 mg/dL (74-106); Potassium 3.7 mmol/L (3.5-5.1); Protein, Total 7.8 g/dL (6.4-8.2); Sodium Level 138 mmol/L (136-145)
--- NOTE | 2020-01-24 11:48 | RAD_ITS ---
STUDY: X-RAY CHEST REASON FOR EXAM: Male, 59 years old. SOB 2 DAYS -- WORSENING TECHNIQUE: Single AP portable view of the chest. COMPARISON: Comparison is made with prior study dated 11/12/2019. FINDINGS: EKG electrodes are seen. Since prior study, the patient underwent surgery in the right upper lobe with postoperative volume loss in the right upper lobe. The left lung is clear. There is no demonstrated pleural abnormality. Normal size heart. Normal mediastinum and juvencio. Normal visualized pulmonary arteries. Normal visualized aortic arch and descending thoracic aorta. Normal visualized thoracic spine. Normal visualized ribs, clavicles, and shoulders. There is no demonstrated abnormality of the visualized soft tissue structures of the upper abdomen. RAD/Chest 1 View (Portable) IMPRESSION: Status post resection with postoperative changes in the right upper lobe. Electronically Signed: Mynor Ingram, at 12:15 EDT , Service support ,
[2020-01-24 11:49] LABS: Procalcitonin < 0.04 ng/mL (0.00-0.09)
[2020-01-24 11:52] LABS: Lactic Acid 1.4 mmol/L (0.4-1.9); Platelet Estimate ADEQUATE (ADEQ)
[2020-01-24 11:53] LABS: Red Cell Morphology NORM C+C NORMAL (NORM C&C)
[2020-01-24] MEDS: Morphine 4 MG/ML Syringe IV (12:18)
--- NOTE | 2020-01-24 12:31 | HP.PCM_ITS ---
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 Patient comes in with progressive shortness of breath. He called his oncologist and was asked to come to the emergency department. Work-up in the ED showed negative COVID-19 PCR. D-dimer was normal. He was found to have no oxygen requirement. Chest x-ray showed post resection, postoperative changes in the right upper lobe. Admitting blood work was unremarkable. Past Medical History Past Medical History (Chronic Problems): Chronic Problems (Last Reviewed 11/14/19 @ 10:09 by Katy Elizabeth) Chronic pain (Chronic) Lymphedema (Chronic) Chronic lower Back Pain due to (Chronic) Medical History: Medical History (Last Reviewed 11/14/19 @ 10:09 by Katy Elizabeth) Lung mass (Acute) R91.8 Tobacco abuse (Acute) Z72.0 Lung cancer (Acute) C34.90 Altered mental state (Inactive) R41.82 Closed head injury (Inactive) S09.90XA AVELINO (acute kidney injury) (Inactive) N17.9 Dehydration (Inactive) E86.0 Hypokalemia (Inactive) E87.6 Chronic pain (Chronic) G89.29 Lymphedema (Chronic) I89.0 Morbid obesity with BMI of 50.0-59.9, adult (Inactive) E66.01, Z68.43 sedation due to narcotic (Inactive) Chronic lower Back Pain due to (Chronic) Fall (Inactive) W19.XXXA Schizophrenia (Inactive) F20.9 review of his old chart documents schizophrenia BUT review of the notes from the psychiatrist at [facility] does not support this. HX is + for severe depression and anxiety Allergies No Known Allergies Allergy (Verified 01/24/20 10:18) Home Medications: Ambulatory Orders Medication Instructions Recorded Albuterol Sulfate 2.5 mg INHALATION Q4H PRN PRN 01/02/20 Albuterol Sulfate [Albuterol 2 puff INHALATION Q4H PRN PRN 01/02/20 Sulfate HFA] HYDROmorphone tablet [Dilaudid] 4 mg PO Q4H PRN PRN 01/24/20 Olanzapine 5 mg PO QHS 01/24/20 Omeprazole 40 mg PO DAILY 01/24/20 Ondansetron HCl [Zofran] 4 mg PO Q8H PRN PRN 01/24/20 Surgical History: - - spinal pain pump placed and extracted; and then replacement of a pain pump in abdomen Psychiatric History: Schizophrenia Lives: Alone Smoking Status: Current every day smoker Alcohol: None - *Family History Paternal Family History: Family History (Last Reviewed 11/14/19 @ 10:10 by Katy Elizabeth) Uncle Myocardial infarction History Items: - - Father of suicide Maternal Family History: Family History (Last Reviewed 11/14/19 @ 10:10 by Katy Elizabeth) Uncle Myocardial infarction History Items: - - heart issues, mother with mi recently Review of Systems Constitutional: Reports: Malaise, Weakness, Fatigue. Denies: Anorexia, Chills, Fever, Weight Change Eyes: Denies: Blurred vision, Cataracts, Conjunctivae Inflammation, Pain, Redness HEENT: Denies: Difficulty Hearing, Difficulty Swallowing, Head Aches, Hearing Changes, Sinus Congestion, Sinus Drainage Cardiovascular: Denies: Chest Pain, Claudication, Orthopnea, Palpitations Respiratory: Denies: Cough, Shortness of breath at rest, Sputum production Gastrointestinal: Denies: Abdominal Pain, Constipation, Nausea, Vomiting Genitourinary: Denies: Dysuria Musculoskeletal: Denies: Joint Pain, Joint stiffness, Joint swelling, Joint Tenderness Skin: Denies: Rash, Wounds Neurological: Denies: Difficulty swallowing, Focal weakness, Numbness, Tingling Psychiatric: Denies: Anxiety, Depression, Homicidal Ideations, Suicidal Ideations Hematologic/ Lymphatic: Denies: Easy Bruising, Easy Bleeding VTE Information - Inpt Only VTE Present on Admission: No VTE Pharm Prophylaxis ordered?: Yes Patient Problems: Active and Suspected Problems (Last Reviewed 11/14/19 @ 10:09 by Katy Elizabeth) Hypotension (Acute) Neutropenia (Acute) Right upper lobe pneumonia (Acute) Stage III squamous cell carcinoma of lung (Acute) Lung cancer (Acute) - Physical Exam Vitals/I&O's: Vital Signs Temp Pulse Resp BP Pulse Ox 97.6 F L 100 20 H 127/85 H 98 01/24/20 10:21 01/24/20 12:15 01/24/20 12:15 01/24/20 12:15 01/24/20 12:15 Oxygen Delivery Method Room Air Weight: 120.202 kg Body Mass Index (BMI) 36.9 Finger Stick Blood Glucose 127 General: Alert, Oriented x3, Cooperative, No apparent distress HEENT: Atraumatic, PERRLA, EOMI, Normocephalic Oral: Moist Mucosa Neck: Supple Lungs: Diminished Cardiovascular: Regular rate, Regular Rhythm, Normal S1, Normal S2, No murmurs Abdomen: Bowel Sounds Present, Soft, Non Tender, Non-Distended, No Hepato- splenomegaly Extremities: No edema Skin: No rashes Musculoskeletal: No Tenderness to Palpation of Joints or Extremities Lymphatic: No Cervical, Supraclavicular, or Inguinal Adenopathy Neurological: Cranial nerves II-XII grossly intact, Neuro grossly intact Psych/Mental Status: Normal Affect, Appropriate Laboratory Results 01/24/20 10:35: COVID-19 (TALA) Pending 01/24/20 10:50: WBC 2.6 L, RBC 3.95 L, Hgb 12.3 L, Hct 35.7 L, MCV 90.4, MCH 31.1, MCHC 34.5, RDW Std Deviation 43.2, RDW Coeff of Shell 13.5, Plt Count 190, MPV 9.1, Immature Gran % (Auto) 0.000, Neut % (Auto) 75.3 H, Lymph % (Auto) 19.0, [place] % (Auto) 4.9, Eos % (Auto) 0.4, Baso % (Auto) 0.4, Absolute Neuts (auto) 2.0, Absolute Lymphs (auto) 0.50 L, Nucleated RBC % 0, Differential Comment , Diff Path Review May foll, Platelet Estimate ADEQUATE, RBC Morphology NORM C+C 01/24/20 10:50: Sodium 138, Potassium 3.7, Chloride 106, Carbon Dioxide 24.0, Anion Gap 8, BUN 13, Creatinine 1.00, Estim Creat Clear Calc 85.76, Est GFR (MDRD) Af Amer 99, Est GFR (MDRD) Non-Af 82, BUN/Creatinine Ratio 13.0, Glucose 117 H, Calcium 9.3, Total Bilirubin 0.80, AST 13 L, ALT 22, Alkaline Phosphatase 73, Total Protein 7.8, Albumin 3.5, Globulin 4.3 H, Albumin/Globulin Ratio 0.8 L 01/24/20 10:50: Lactic Acid 1.4 01/24/20 10:50: Procalcitonin < 0.04 Current Medications Piperacillin Sod/Tazobactam (Sod 4.5 gm/ Sodium Chloride) 100 mls @ 200 mls/hr IV X1 ONE Stop: 01/24/20 12:34 Sodium Chloride () 1,000 mls @ 1,000 mls/hr IV .Q1H ONE Stop: 01/24/20 13:06 Vancomycin HCl 2,000 mg/ (Sodium Chloride) 540 mls @ 250 mls/hr IV X1 ONE Stop: 01/24/20 14:39 Assessment/Plan All Active Problems (Last Reviewed 11/14/19 @ 10:09 by Katy Elizabeth) Hypotension (Acute) Neutropenia (Acute) Right upper lobe pneumonia (Acute) Stage III squamous cell carcinoma of lung (Acute) Dyspnea (Acute) Lung mass (Acute) Tobacco abuse (Acute) Lung cancer (Acute) 1. Dyspnea, unknown etiology, in a patient with history of non-small cell lung CA/squamous cell lung CA On chemotherapy, chest x-ray showed postoperative changes D-dimer unremarkable. COVID-19 test is negative Patient is not on oxygen, would monitor overnight, reassess for oxygen in a.m. 2. Possible pneumonia, patient stated he was recently treated for pneumonia Started on empiric vancomycin and Zosyn Would get stat records from the [facility] Continue on antibiotics for now pending records 3. Non-small cell/squamous cell lung CA, follows with oncology, radiation oncology and pulmonology 4. Chronic back pain, on chronic pain meds 5. Schizophrenia, no signs of acute exacerbation 6. DVT prophylaxis with Lovenox subcu Inpatient E&M: 19576 Init Hosp L3
[2020-01-24] MEDS: 0.9% Normal Saline 1,000 ML 1000 ML IV (12:55)
--- NOTE | 2020-01-24 13:16 | NURSING ---
PCU PAINTSIL RT UPPER LOBE PNEUMONIA, SEPSIS, HYPOTENSION
[2020-01-24] MEDS: HYDROmorphone 2 MG TABLET PO (13:38)
--- NOTE | 2020-01-24 15:22 | PCM.RX.CS ---
Consult Pharmacy has been consulted to manage selected antiobiotic: Vancomycin Type of Consult: New start Suspected Infection: Pneumonia Labs: Sodium 138 mmol/L (136-145) 01/24/20 10:50 Potassium 3.7 mmol/L (3.5-5.1) 01/24/20 10:50 Chloride 106 mmol/L (98-107) 01/24/20 10:50 Carbon Dioxide 24.0 mmol/L (21.0-32.0) 01/24/20 10:50 Anion Gap 8 (5-15) 01/24/20 10:50 BUN 13 mg/dL (7-18) 01/24/20 10:50 Creatinine 1.00 mg/dL (0.70-1.30) 01/24/20 10:50 Est GFR (MDRD) Af Amer 99 mL/min (>60) 01/24/20 10:50 Est GFR (MDRD) Non-Af 82 mL/min (>60) 01/24/20 10:50 BUN/Creatinine Ratio 13.0 RATIO (-) 01/24/20 10:50 Glucose 117 mg/dL (74-106) H 01/24/20 10:50 Goal Trough: 15-20 mcg/mL Pharmacy Plan for Drug Dosing: NEW START IV VANCOMYCIN Consulting Physician: SAMARA Indication: PNEUMONIA Goal Trough: 15-20 SrCr: 1.0 CrCl: 86ML/MIN Vancomycin Dose: 2000MG Q12H STARTING 01/24 @ 0130 (RECEIVED ED DOSE 01/23 AT 1338) Pharmacy Service will continue to monitor and adjust dosing as required. Labs to be done on [date and time ordered]: 01/26/20 @ 0100
[2020-01-24 15:34] LABS: D-Dimer Quantitative (DVT/PE) 0.41 FEU/ug/m (0.27-0.49)
[2020-01-24 15:48] LABS: LDH 176 U/L (87-241)
[2020-01-24 15:52] LABS: BNP,B-Type NATRIURETIC PEPTIDE 9.5 pg/mL (0-100)
--- NOTE | 2020-01-24 17:17 | NURSING ---
Called out with c/o SOB, pulse ox 96% on room air, audible wheezes noted. Respiratory notified to do breathing treatment.
--- NOTE | 2020-01-24 17:27 | NURSING ---
oxygen applied at 2l nc for comfort.
[2020-01-24] MEDS: Ipratropium/Albuterol Sulfate 3 ML AMPUL.NEB INHALATION ×2 (17:38→22:31)
[2020-01-24] MEDS: HYDROmorphone 2 MG TABLET 4 MG PO ×2 (18:00→22:26)
[2020-01-24 18:05] LABS: Allen Test Negative; Base Excess 0 mmol/L (-2 to +2); Bicarbonate 24.5 mmol/L (22-26); Blood Gas Specimen Type ART; O2 Delivery Device Cannula; PO2 99 mmHG (75-100); SITE R Radial; SO2 98 % (95-99); Total Carbon Dioxide 26 mmol/L; pCO2 36.7 mmHg (35-45); pH 7.43 (7.35-7.45)
--- NOTE | 2020-01-24 19:49 | RAD_ITS ---
STUDY: X-RAY CHEST REASON FOR EXAM: Male, 59 years old. PNEUMOTHORAX RULE OUT, CONCERNED LOWER LEFT LUNG TECHNIQUE: Single frontal view of the chest. COMPARISON: 11:37 AM FINDINGS: Stable right lung volume loss and right suprahilar density. Right bronchial stent. There is no demonstrated pleural abnormality. Normal size heart. Normal mediastinum and juvencio. Normal visualized pulmonary arteries. Normal visualized aortic arch and descending thoracic aorta. Normal visualized thoracic spine. Normal visualized ribs, clavicles, and shoulders. There is no demonstrated abnormality of the visualized soft tissue structures of the upper abdomen. RAD/Chest 1 View IMPRESSION: No pneumothorax is seen. Electronically Signed: Chung Gonsales MD at 20:24 EDT Tel , Service support ,
[2020-01-24] MEDS: Ketorolac 15 MG/ML Vial IV (21:08)
[2020-01-24] MEDS: Enoxaparin 30 MG/0.3 ML Syringe SC (21:10)
[2020-01-25] VITALS (11 sets, daily range): BP systolic 121–139; BP diastolic 75–98; PULSE 77–98; RESP 16–20; TEMP 36.2–37.1; O2SAT 93–99
[2020-01-25] MEDS: Albuterol 2.5 MG/3 ML VIAL.NEB. INHALATION (01:17)
[2020-01-25] MEDS: HYDROmorphone 2 MG TABLET 4 MG PO ×2 (02:22→06:36)
[2020-01-25] MEDS: Ketorolac 15 MG/ML Vial IV (03:16)
[2020-01-25] MEDS: Ipratropium/Albuterol Sulfate 3 ML AMPUL.NEB INHALATION ×2 (07:20→10:52)
[2020-01-25 08:04] LABS: Absolute Lymphocyte Count 0.51 X10^3/uL (0.83-4.51); Absolute Neutrophil Count 1.5 X10^3/uL (2.0-7.7); Basophil# 0.01 X10^3/uL; Basophil% 0.5 % (0-1); Eosinophil# 0.03 X10^3/uL; Eosinophils% 1.4 % (0-5); Hematocrit 30.1 % (40-54); Hemoglobin 9.7 g/dL (13.0-16.5); Lymphocyte # 0.51 X10^3/ul (4.0); Lymphocyte % 23.5 % (19-41); Mean Corp Hgb Conc 32.2 g/dL (32-36); Mean Corpuscular Hgb 30.5 pg (27.0-32.0); Mean Corpuscular Volume 94.7 fL (80-94); Mean Platelet Vol. 8.9 fl (6.2-12.0); Monocyte# 0.15 X10^3/uL; Monocyte% 6.9 % (0-10); NRBC Flagged by Analyzer 0 % (0-5); Neutrophil # 1.46 X10^3/uL (2.7-7.7); Neutrophil % 67.2 % (47-70); POSITIVE DIFFERENTIAL YES; Platelet Count 144 K/mm3 (150-450); RBC Distribution Width CV 13.7 % (11.6-14.6); RBC Distribution Width SD 45.7 fl (35.1-43.9); Red Blood Count 3.18 M/mm3 (4.6-6.2); White Blood Count 2.2 K/mm3 (4.4-11.0)
[2020-01-25 08:13] LABS: Anion Gap 7 (5-15); BUN 16 mg/dL (7-18); BUN/Creat Ratio 17.1 RATIO (10-20); Calcium,Total 8.2 mg/dL (8.5-10.1); Chloride 105 mmol/L (98-107); Creatinine, Serum 0.94 mg/dL (0.70-1.30); EST Glomerular Filtration Rate 88 mL/min (>60); Est Glom Filt Rate - Afr Amer 106 mL/min (>60); Estimated Creatinine Clearance 91.23 ml/min; Glucose 97 mg/dL (74-106); Magnesium 1.9 mg/dL (1.6-2.6); Sodium Level 138 mmol/L (136-145)
[2020-01-25] MEDS: Pantoprazole Sodium 40 MG Tablet PO (09:48)
[2020-01-25] MEDS: Enoxaparin 30 MG/0.3 ML Syringe SC (09:48)
[2020-01-25] MEDS: predniSONE 20 MG Tablet 40 MG PO (09:48)
--- NOTE | 2020-01-25 10:00 | CASEMGMT ---
RN CM Face to Face with patient for initial transition planning/care coordination assessment. RN CM introduced self and role at [facility]. Patient lying in bed, alert and oriented. Patient willing to participate in assessment and is able to answer all questions appropriately. Care providers, pharmacy, and demographics verified. Patient wishes to discharge home, denies need for home health at this time. Patient states he has no further needs or concerns at this time. CM to follow for discharge planning needs that may arise. PCP: NO PCP, refused list Specialists: Sonja, oncologist; Sascha, Pulmonology; Terence, Nephrology Preferred Pharmacy: [facility] retail Insurance: MMO Prescription Benefit: yes Living Will/HPOA: yes, son LNOK: son Living Arrangements: Patient lives alone in a 2 story home and is independent at home. Transportation: self, family DME/HHC: patient has can grab bars and nebulizer at home. Patient denies HHC. Patient is active with palliative care. Disposition Plan: Patient to discharge home with family support and follow-up plans in place. Lore CAMPBELL, RN, CM
[2020-01-25 10:15] LABS: Differential Comment SCANNED
[2020-01-25] MEDS: levoFLOXacin 750 MG Tablet PO (11:32)
--- NOTE | 2020-01-25 12:14 | DCINST_ITS ---
- Discharge Diagnoses Current Active Problems: Current Active and Chronic Problems (Last Reviewed 11/14/19 @ 10:09 by Katy Elizabeth) Hypotension (Acute) Neutropenia (Acute) Right upper lobe pneumonia (Acute) Stage III squamous cell carcinoma of lung (Acute) Dyspnea (Acute) Lung cancer (Acute) Chronic lower Back Pain due to (Chronic) Reason(s) for Visit for Discharge Instructions: Shortness of breath, Acute COPD exacerbation You will use the following diet at home:: Regular Your food should be the consistency of: Regular Your liquids should be the consistency of: Regular/Thin Discharge Activity: Return to Normal Activity Instructions: Tips for Quitting Smoking (Cardiovascular), Chronic Lung Disease: Tips for Quitting Smoking, Getting Support for Quitting Smoking, Staying Smoke- Free Additional Instructions: Work-up in this admission was negative for COVID-19 viral infection. No pneumonia was found on chest x-ray. Chest x-ray showed scarring in your lungs. You are being managed as acute COPD exacerbation. Complete your antibiotics. Complete your prednisone taper. Continue to stay hydrated. Follow-up with your primary care doctor as well as with your lung doctor within 2 weeks. Follow-up with your oncologist in the [facility] as scheduled. Allergies/Adverse Reactions: Allergies No Known Allergies Allergy (Verified 01/24/20 10:18) Medications to take at Discharge Albuterol Sulfate 2.5 mg INHALATION Q4H PRN PRN 01/02/20 Albuterol Sulfate [Albuterol Sulfate HFA] 2 puff INHALATION Q4H PRN PRN 01/02/20 HYDROmorphone tablet [Dilaudid] 4 mg PO Q4H PRN PRN 01/24/20 Olanzapine 5 mg PO QHS 01/24/20 Omeprazole 40 mg PO DAILY 01/24/20 Ondansetron HCl [Zofran] 4 mg PO Q8H PRN PRN 01/24/20 Prednisone 10 mg PO DAILY 12 Days #30 tab 01/25/20 levoFLOXacin tablet [Levaquin tablet] 750 mg PO DAILY@0600 5 Days #5 tab 01/25/20 The following prescriptions were given: levoFLOXacin tablet [Levaquin tablet] 750 mg PO DAILY@0600 5 Days #5 tab Transmission Status: Pending to [facility] Prednisone 10 mg PO DAILY 12 Days #30 tab Transmission Status: Pending to [facility] Primary Care Physician: Care Physician,No Primary [Primary Care Provider] - Please follow up with your Primary Care Physician in: within 2 weeks Test Results: Test results from this visit will be discussed in further detail at your follow- up appointment, if applicable. Please Follow Up With: Jefferson Caicedo DO When: within 2 weeks Proposed Discharge Date: 01/25/20
--- NOTE | 2020-01-25 12:26 | DS.PCM_ITS ---
Discharge Date and Diagnosis - Problem List Patient Problems: Active and Suspected Problems (Last Updated 01/25/20 @ 12:[address] Isa Peter MD) Hypotension (Acute) Neutropenia (Acute) Right upper lobe pneumonia (Acute) Stage III squamous cell carcinoma of lung (Acute) Dyspnea (Acute) Lung cancer (Acute) Date of Admission: 01/24/20 Date of Discharge: 01/25/20 - Primary Discharge Diagnosis Acute Problems: Active Problems (Last Reviewed 11/14/19 @ 10:09 by Katy Elizabeth) Acute COPD exacerbation Acute pneumonia ruled out - Secondary Discharge Diagnosis Chronic Problems: Chronic Problems (Last Reviewed 11/14/19 @ 10:09 by Katy Elizabeth) Acute exacerbation of chronic obstructive pulmonary disease (COPD) (Chronic) Chronic pain (Chronic) Lymphedema (Chronic) Chronic lower Back Pain due to (Chronic) Hospital Course and Treatment Imaging Results: Clinical Impression(s) from Imaging Studies Chest X-Ray 01/24/20 11:48 IMPRESSION: Status post resection with postoperative changes in the right upper lobe. Electronically Signed: Mynor Ingram at 12:15 EDT , Service support , Chest X-Ray 01/24/20 19:49 IMPRESSION: No pneumothorax is seen. Electronically Signed: Chung Gonsales MD at 20:24 EDT Tel , Service support , Operations: None Procedures: None Summary of Care Provided: 9 year old M with past medical history of non-small cell lung CA/squamous cell carcinoma who is currently undergoing radiation therapy as well as chemotherapy, follows with oncology in the [facility], recently discharged to [facility] where he had work-up for pneumonia. Patient comes in with progressive shortness of breath. He called his oncologist and was asked to come to the emergency department. Work-up in the ED showed negative COVID-19 PCR. D-dimer was normal. He was found to have no oxygen requirement. Chest x-ray showed post resection, postoperative changes in the right upper lobe. Admitting blood work was unremarkable. Over the course of the patient's stay, he had some scattered wheezes. He was managed on prednisone and breathing treatment with improvement. Records from [facility] showed that he was treated for pneumonia in the first week of December. Patient did not have any fever or leukocytosis during the hospital stay. He was evaluated for ambulatory oxygen and did not qualify for oxygen. Patient was asked to complete his steroid taper. He would need to follow-up with his clock smith in the outpatient. Patient Problems: Active and Suspected Problems (Last Updated 01/25/20 @ 12:[address] Isa Peter MD) Hypotension (Acute) Neutropenia (Acute) Right upper lobe pneumonia (Acute) Stage III squamous cell carcinoma of lung (Acute) Dyspnea (Acute) Lung cancer (Acute) Subjective: The day of discharge, patient was seen and examined. He feels much improved. Not on oxygen. Denied fever or chills or cough. Objective: Physical exam: General: Alert, Oriented x3, Cooperative, No apparent distress HEENT: Atraumatic, PERRLA, EOMI, Normocephalic Oral: Moist Mucosa Neck: Supple Lungs: Diminished Cardiovascular: Regular rate, Regular Rhythm, Normal S1, Normal S2, No murmurs Abdomen: Bowel Sounds Present, Soft, Non Tender, Non-Distended, No Hepato- splenomegaly Extremities: No edema Skin: No rashes Musculoskeletal: No Tenderness to Palpation of Joints or Extremities Lymphatic: No Cervical, Supraclavicular, or Inguinal Adenopathy Neurological: Cranial nerves II-XII grossly intact, Neuro grossly intact Psych/Mental Status: Normal Affect, Appropriate - Physical Exam Vitals/I&O's: Vital Signs Temp Pulse Resp BP Pulse Ox 97.1 F L 98 16 121/75 H 93 01/25/20 09:46 01/25/20 10:52 01/25/20 10:52 01/25/20 09:46 01/25/20 10:03 Oxygen Flow Rate (L/min) [ 0 AMBULATING on Room Air] Oxygen Flow Rate (L/min) [At 0 REST on Room Air] Oxygen Flow Rate (L/min) 2 Oxygen Delivery Method Room Air Weight: 112.672 kg Body Mass Index (BMI) 34.6 Finger Stick Blood Glucose 127 Intake and Output for Last 24 Hours 01/23/20 01/24/20 01/25/20 23:59 23:59 23:59 Intake Total 2790 / 2790 583.96 / 583.96 Balance 2790 / 2790 583.96 / 583.96 Microbiology Past 72 Hours 01/24/20 18:30 Urine, Random Legionella Antigen - Final 01/24/20 18:30 Urine, Random Streptococcus pneumoniae Antigen (M - Final 01/24/20 10:35 Mucosa - Nasopharyngeal Respiratory Panel (PCR) - Final Laboratory Results 01/24/20 10:35: COVID-19 (TALA) Not Detected 01/24/20 15:14: D-Dimer Quant (PE/DVT) 0.41 01/24/20 15:14: B-Natriuretic Peptide 9.5 01/24/20 15:14: Lactate Dehydrogenase 176 01/24/20 18:02: Specimen Type ART, Sample Site R Radial, pH 7.43, Bicarbonate Actual 24.5, Total CO2 26, Base Excess 0, O2 Saturation 98, ABG pCO2 36.7, ABG pO2 99, Brian Test Negative, O2 Delivery Device Cannula, Liter Flow 2.0 01/25/20 05:50: WBC 2.2 L, RBC 3.18 L, Hgb 9.7 L, Hct 30.1 L, MCV 94.7 H, MCH 30.5, MCHC 32.2 D, RDW Std Deviation 45.7 H, RDW Coeff of Shell 13.7, Plt Count 144 L, MPV 8.9, Immature Gran % (Auto) 0.500, Neut % (Auto) 67.2, Lymph % (Auto) 23.5, [place] % (Auto) 6.9, Eos % (Auto) 1.4, Baso % (Auto) 0.5, Absolute Neuts (auto) 1.5 L, Absolute Lymphs (auto) 0.51 L, Nucleated RBC % 0, Differential Comment SCANNED 01/25/20 05:50: Sodium 138, Potassium 4.0, Chloride 105, Carbon Dioxide 26.0, Anion Gap 7, BUN 16, Creatinine 0.94, Estim Creat Clear Calc 91.23, Est GFR (MDRD) Af Amer 106, Est GFR (MDRD) Non-Af 88, BUN/Creatinine Ratio 17.1, Glucose 97, Calcium 8.2 L, Magnesium 1.9 Current Medications Acetaminophen (Acetaminophen 325 Mg Tablet) 650 mg PO Q6H PRN PRN PRN Reason: Pain Score 1-10 Albuterol Sulfate (Albuterol 2.5 Mg/3 Ml Vial.Neb.) 2.5 mg INHALATION Q2H PRN PRN PRN Reason: sob/wheezing Last Admin: 01/25/20 01:17 Dose: 2.5 mg Documented by: Albuterol/Ipratropium (Ipratropium/Albuterol Sulfate 3 Ml Ampul.Neb) 3 ml INHALATION Q4HWA.RT [facility] Last Admin: 01/25/20 10:52 Dose: 3 ml Documented by: Enoxaparin Sodium (Enoxaparin 30 Mg/0.3 Ml Syringe) 30 mg SC BID [facility] Last Admin: 01/25/20 09:48 Dose: 30 mg Documented by: Hydromorphone HCl (Hydromorphone 2 Mg Tablet) 4 mg PO Q4H PRN PRN Reason: PAIN 6-10 Last Admin: 01/25/20 06:36 Dose: 4 mg Documented by: Ketorolac Tromethamine (Ketorolac 15 Mg/Ml Vial) 15 mg IV Q6H PRN PRN PRN Reason: pain 6-10/10 Stop: 01/29/20 20:39 Last Admin: 01/25/20 03:16 Dose: 15 mg Documented by: Levofloxacin (Levofloxacin 750 Mg Tablet) 750 mg PO DAILY@0600 [facility] Last Admin: 01/25/20 11:32 Dose: 750 mg Documented by: Nutritional Formula (Lactose Free) (Ensure Enlive 120 Ml Liquid) 120 ml PO 4X/DAY [facility] Last Admin: 01/25/20 09:48 Dose: Not Given Documented by: Olanzapine (Olanzapine 2.5 Mg Tablet) 5 mg PO QHS [facility] Last Admin: 01/24/20 21:17 Dose: Not Given Documented by: Pantoprazole Sodium (Pantoprazole Sodium 40 Mg Tablet) 40 mg PO DAILY [facility] Last Admin: 01/25/20 09:48 Dose: 40 mg Documented by: Prednisone (Prednisone 20 Mg Tablet) 40 mg PO DAILY@0800 [facility] Sodium Chloride (0.9% Saline Lock 10 Ml Syringe) 10 - 40 ml IV UD PRN PRN Reason: SALINE FLUSH Discharge Diet: Low fat/ Low Cholesterol, 2000 mg Sodium Diet Discharge Activity: Return to Normal Activity Home Medications: Medications to take at Discharge Albuterol Sulfate 2.5 mg INHALATION Q4H PRN PRN 01/02/20 Albuterol Sulfate [Albuterol Sulfate HFA] 2 puff INHALATION Q4H PRN PRN 01/02/20 HYDROmorphone tablet [Dilaudid] 4 mg PO Q4H PRN PRN 01/24/20 Olanzapine 5 mg PO QHS 01/24/20 Omeprazole 40 mg PO DAILY 01/24/20 Ondansetron HCl [Zofran] 4 mg PO Q8H PRN PRN 01/24/20 Prednisone 10 mg PO DAILY 12 Days #30 tab 01/25/20 levoFLOXacin tablet [Levaquin tablet] 750 mg PO DAILY@0600 5 Days #5 tab 01/25/20 Following Prescriptions Were Given to Patient: levoFLOXacin tablet [Levaquin tablet] 750 mg PO DAILY@0600 5 Days #5 tab Transmission Status: Received by [facility] Prednisone 10 mg PO DAILY 12 Days #30 tab Transmission Status: Received by [facility] Primary Care Physician: Care Physician,No Primary [Primary Care Provider] - Please follow up with your Primary Care Physician in: within 2 weeks Please Follow Up With: Jefferson Caicedo DO When: within 2 weeks Patient Instructions: Tips for Quitting Smoking (Cardiovascular), Chronic Lung Disease: Tips for Quitting Smoking, Getting Support for Quitting Smoking, Staying Smoke-Free Disposition: Home Minutes spent on discharge:: 40 Patient Condition:: Stable Medical Necessity - Tobacco Use Smoking Status: Current every day smoker Tobacco Use: Cigarettes Meaningful Use Info Meaningful Use Diagnoses (Choose all that apply): None applicable Inpatient E&M: [id number] [facility]
--- NOTE | 2020-01-25 13:32 | CASEMGMT ---
As per CM, pt active w/palliative care. SW faxed H&P and discharge instructions for pt over to Palliative Care w/[facility]. HENNY Vitale
[2020-01-27 12:11] LABS: Pathologist Review Reviewed
--- NOTE | 2020-01-27 17:02 | CASEMGMT ---
BREE ALEXANDRE Discharge Follow-up Phone Call: CHARLA: Jyoti Strata: 3 Call Date: 01/27/2020 Discharge Date: 01/25/2020 Time of Call: 1650 Admitting Diagnosis: COPD exacerbation Discharge follow-up call placed to pt. Pt states he was feeling worse at discharge than when he presented but that he is feeling better today than he was. States on the way home from the hospital he had a coughing spell and he expelled a large green piece of meat that was just a little smaller than a ping-pong ball. States he cannot say if this relieved any of his symptoms as he was so concerned about what this may have been. Pt states he threw the specimen out the window of his car. Pt states he had chemo, radiation, and blood work today and is now tired. Pt states he was not aware that he was to follow-up with Dr. Caicedo but states if they want to call him to schedule an appointment than he will attend as long as it does not conflict with his other appointments. Pt did not appear willing to contact them himself to arrange. Pt agreeable to this BREE ALEXANDRE contacting Dr. Caicedo's office in the AM to arrange a follow-up appointment. Pt states he obtained and is taking his medications as prescribed. Pt reports his PO to be running 94-97% and denies any significant issues with SOB. Pt states his only concern is regarding statements he is receiving from his insurance that state the chemo and radiation treatments he is receiving are experimental and are being denied for reimbursement. He states they also report his responsibility is $0. Will follow-up with pt regarding his appointment with Dr. Caicedo tomorrow. Lenard Rosen RN CM
--- NOTE | 2020-01-28 09:28 | CASEMGMT ---
Appointment for patient obtained for February 06 at 1045 with MARY KAY Bassett. Called patient and informed him of the appointment. He wrote it down. No issues conveyed. Lenard Rosen RN CM
== END 2020-01-25 13:21 | disposition home or self-care (01) | DRG 191 ==
LOC: ED 12:10 → PCU 14:47
PROVIDERS: Admitting Provider Internal Medicine; Emergency Provider Emergency Medicine; Visit Provider Internal Medicine
DX: J44.1 Chronic obstructive pulmonary disease with (acute) exacerbation (principal); C34.91 Malignant neoplasm of unspecified part of right bronchus or lung; M54.5 Low back pain; G89.29 Other chronic pain; I95.9 Hypotension, unspecified; F20.9 Schizophrenia, unspecified; F17.210 Nicotine dependence, cigarettes, uncomplicated; Z87.01 Personal history of pneumonia (recurrent)
CPT/HCPCS: 36415; 36600; 71045; 80048; 80053; 82803; 83605; 83615; 83735; 83880; 84145; 85025; 85379; 87040; 87449; 87633; 87635; 93005; 94640; 99285; J7030; J7040; A4216; U0002